=== PATIENT | female | born 1990 | race Caucasian/White ===

== ENCOUNTER 2020-02-07 20:43 | Emergency (ER) | payer OTHER ==
--- NOTE | 2020-02-07 22:09 | ED Physician Documentation ---
PD HPI CHEST PAIN - Stated complaint Stated Complaint: CP - Chief complaint Chief Complaint: Cardiac - History obtained from History obtained from: Patient - History of Present Illness Timing - onset: How many hours ago (2) Timing - onset during: Rest Timing - details: Abrupt onset Pain level max: 8 Pain level now: 2 Quality: Pain Location: Left chest Radiation: Other (no radiation) Associated symptoms: Feeling faint / dizzy, General Weakness. No: Shortness of air, Diaphoresis, Nausea, Vomiting, Palpitations, Cough Similar symptoms before: Has not had sx before Recently seen: Not recently seen - Additional information Additional information: c/o sudden onset left chest pain approximately 2 hours ago while at rest at home, associated with generalized weakness and "felt like I was going to pass out" (per patient). Denies h/o similar symptoms. Denies dyspnea Review of Systems Constitutional: reports: Reviewed and negative Cardiac: reports: Chest pain / pressure. denies: Palpitations, Pedal edema, Calf pain Respiratory: reports: Reviewed and negative GI: reports: Reviewed and negative Neurologic: reports: Generalized weakness (resolved). denies: Focal weakness, Numbness PD PAST MEDICAL HISTORY - Past Medical History Past Medical History: No - Past Surgical History Past Surgical History: Yes General: Appendectomy - Present Medications Home Medications: Ambulatory Orders Medication Instructions Recorded Confirmed Pantoprazole [Protonix] 40 mg PO DAILY 02/07/20 02/07/20 - Allergies Allergies/Adverse Reactions: Allergies Allergy/AdvReac Type Severity Reaction Status Date / Time Penicillins Allergy Unknown Verified 02/07/20 20:49 - Social History Does the pt smoke?: No Smoking Status: Never smoker Does the pt drink ETOH?: Yes Does the pt have substance abuse?: No - Immunizations Immunizations are current?: Yes - POLST Patient has POLST: No PD ED PE NORMAL - Vitals Vital signs reviewed: Yes - General General: Alert and oriented X 3, No acute distress, Well developed/nourished - Cardiac Cardiac: RRR, No murmur, No gallop, No rub - Respiratory Respiratory: No respiratory distress, Clear bilaterally - Abdomen Abdomen: Soft, Non tender - Extremities Extremities: No edema Results - Vitals Vitals: Vital Signs - 24 hr 02/07/20 02/07/20 02/07/20 20:46 20:54 22:54 Temperature 36.3 C L Heart Rate 73 56 L 57 L Respiratory 18 18 18 Rate Blood Pressure 125/77 116/74 102/75 O2 Saturation 99 99 97 02/08/20 02/08/20 00:00 00:21 Temperature Heart Rate 52 L 86 Respiratory 16 16 Rate Blood Pressure 123/92 H 105/77 O2 Saturation 99 100 Oxygen O2 Source Room air - EKG (time done) No standard instances Rate: Rate (enter#) (63) Rhythm: NSR [place]: Normal Intervals: Normal [place] QRS: Normal Ischemia: Normal ST segments - Labs Labs: Laboratory Tests 02/07/20 02/07/20 02/07/20 22:05 22:05 22:05 WBC 5.7 RBC 4.52 Hgb 11.4 L Hct 36.2 L MCV 80.1 L MCH 25.2 L MCHC 31.5 L RDW 16.0 H Plt Count 235 MPV 11.8 H Neut # (Auto) 2.8 Lymph # (Auto) 2.2 [place] # (Auto) 0.6 Eos # (Auto) 0.1 Baso # (Auto) 0.0 Absolute Nucleated RBC 0.00 Nucleated RBC % 0.0 D-Dimer 226.4 Sodium 140 Potassium 3.1 L Chloride 102 Carbon Dioxide 28 Anion Gap 10.0 BUN 13 Creatinine 0.7 Estimated GFR (MDRD) 100 Glucose 101 H Calcium 9.6 Total Bilirubin 1.0 AST 35 ALT 62 H Alkaline Phosphatase 100 Total Protein 7.1 Albumin 4.4 Globulin 2.7 Albumin/Globulin Ratio 1.6 Lipase 30 HCG, Quant 02/07/20 22:05 WBC RBC Hgb Hct MCV MCH MCHC RDW Plt Count MPV Neut # (Auto) Lymph # (Auto) [place] # (Auto) Eos # (Auto) Baso # (Auto) Absolute Nucleated RBC Nucleated RBC % D-Dimer Sodium Potassium Chloride Carbon Dioxide Anion Gap BUN Creatinine Estimated GFR (MDRD) Glucose Calcium Total Bilirubin AST ALT Alkaline Phosphatase Total Protein Albumin Globulin Albumin/Globulin Ratio Lipase HCG, Quant < 0.60 - Rads (name of study) chest xray Radiology: Prelim report reviewed, See rad report PD MEDICAL DECISION MAKING - ED course Complexity details: reviewed results, re-evaluated patient, considered differential, d/w patient Departure - Departure Disposition: 01 Home, Self Care Clinical Impression: Hypokalemia Chest pain Qualifiers: Chest pain type: unspecified Qualified Code(s): R07.9 - Chest pain, unspecified Condition: Good Instructions: ED Chest Pain Atypical Unkn Cause, ED Potassium Deficiency Comments: Follow up with your primary care provider. You might need to have your potassium level rechecked, and further testing might be needed for your symptoms. Return to the emergency department if you feel your symptoms are worsening in any way. Discharge Date/Time: 02/08/20 00:21
[2020-02-07 22:10] LABS: BASOPHILS % (AUTO) 0.4 %; EOSINOPHILS # (AUTO) 0.1 10^3/uL (0.0-0.7); EOSINOPHILS % (AUTO) 1.2 %; HGB - HEMOGLOBIN 11.4 g/dL (12.0-16.0); LYMPHOCYTES # (AUTO) 2.2 10^3/uL (1.5-3.5); LYMPHOCYTES % (AUTO) 38.4 %; MEAN CORPUSCULAR HEMOGLOBIN 25.2 pg (27.0-31.0); MEAN CORPUSCULAR HGB CONC 31.5 g/dL (32.0-36.0); MEAN CORPUSCULAR VOLUME 80.1 fL (81.0-99.0); MEAN PLATELET VOLUME 11.8 fL (7.9-10.8); MONOCYTES # (AUTO) 0.6 10^3/uL (0.0-1.0); MONOCYTES % (AUTO) 10.9 %; NEUTROPHILS # (AUTO) 2.8 10^3/uL (1.5-6.6); NEUTROPHILS % (AUTO) 48.9 %; PLT - PLATELET COUNT 235 10^3/uL (130-450); RED BLOOD COUNT 4.52 10^6/uL (4.20-5.40); WHITE BLOOD COUNT 5.7 x10^3/uL (4.8-10.8)
[2020-02-07 22:21] LABS: ALBUMIN 4.4 g/dL (3.2-5.5); ALBUMIN/GLOBULIN RATIO 1.6 (1.0-2.2); CALCIUM 9.6 mg/dL (8.5-10.3); CREATININE 0.7 mg/dL (0.4-1.0); TOTAL PROTEIN 7.1 g/dL (6.7-8.2)
[2020-02-08] MEDS ORDERED: POTASSIUM CHLORIDE 20 MEQ TABLET PO STA (00:12)
[2020-02-08 00:21] VITALS: BP 105/77
--- NOTE | 2020-02-08 08:05 | XRAY Report ---
PROCEDURE: Chest 2 View X-Ray INDICATIONS: chest pain TECHNIQUE: 2 view(s) of the chest. COMPARISON: None. FINDINGS: Surgical changes and devices: None. Lungs and pleura: No pleural effusions or pneumothorax. Lungs are clear. Mediastinum: Mediastinal contours are normal. Heart size is mildly prominent. Bones and chest wall: No suspicious bony abnormalities. Soft tissues appear unremarkable. IMPRESSION: No acute pulmonary process. The above findings are concordant with preliminary report. Reviewed by: Darlin Higginbotham MD on 02/08/2020 8:04 AM PDT Approved by: Darlin Higginbotham MD on 02/08/2020 8:04 AM PDT Station ID: [id number]
== END 2020-02-08 00:21 | disposition home or self-care (01) ==
LOC: ED 20:43
DX: R07.9 Chest pain, unspecified (principal); E87.6 Hypokalemia; R53.1 Weakness
CPT/HCPCS: 36415; 71046; 80053; 83690; 84702; 85025; 85379; 93005; 99284; A9270

== ENCOUNTER 2020-07-13 16:36 | Emergency (ER) | payer OTHER ==
--- NOTE | 2020-07-13 17:28 | ED Physician Documentation ---
PD HPI CHEST PAIN - Stated complaint Stated Complaint: CHEST PAIN, L ARM NUMB - Chief complaint Chief Complaint: Cardiac - History obtained from History obtained from: Patient - History of Present Illness Timing - details: Waxing and waning Pain level max: 5 Pain level now: 2 Quality: Other (Burning) Worsened by: Movement, Palpation Associated symptoms: No: Shortness of air, Diaphoresis, Nausea, Vomiting, Feeling faint / dizzy, General Weakness, Palpitations, Cough - Additional information Additional information: Patient is a 30-year-old female who presents to the emergency department left- sided chest pain. She states this been ongoing for about a month. She describes it as a burning sensation in her left upper chest. Occasionally she has numbness in her left arm, sometimes in the fingers, sometimes in the upper arm. Lasts for a few minutes at a time. Worse with movement, better with rest. Review of Systems Ten Systems: 10 systems reviewed and negative Constitutional: denies: Fever, Chills Ears: denies: Ear pain Nose: denies: Rhinorrhea / runny nose, Congestion GI: denies: Nausea, Vomiting, Diarrhea Skin: denies: Rash Musculoskeletal: denies: Neck pain, Back pain, Extremity swelling Neurologic: denies: Focal weakness, Confused, Altered mental status PD PAST MEDICAL HISTORY - Past Medical History Past Medical History: Yes GI: GERD - Past Surgical History Past Surgical History: Yes General: Appendectomy - Present Medications Home Medications: Ambulatory Orders Medication Instructions Recorded Confirmed Pantoprazole [Protonix] 40 mg PO DAILY 02/07/20 07/13/20 - Allergies Allergies/Adverse Reactions: Allergies Allergy/AdvReac Type Severity Reaction Status Date / Time Penicillins Allergy Unknown Verified 07/13/20 17:25 - Living Situation Living Arrangement: reports: At home - Social History Does the pt smoke?: No Smoking Status: Never smoker Does the pt drink ETOH?: Yes Does the pt have substance abuse?: No - Immunizations Immunizations are current?: Yes - POLST Patient has POLST: No PD ED PE NORMAL - Vitals Vital signs reviewed: Yes - General General: Alert and oriented X 3, No acute distress, Well developed/nourished - HEENT HEENT: PERRL, Moist mucous membranes - Neck Neck: Supple, no meningeal sign, No bony TTP, No JVD, No bruit - Cardiac Cardiac: RRR, Strong equal pulses - Respiratory Respiratory: No respiratory distress, Clear bilaterally - Abdomen Abdomen: Soft, Non tender, Non distended - Back Back: No CVA TTP - Derm Derm: Warm and dry - Extremities Extremities: No edema - Neuro Neuro: Alert and oriented X 3, printed circuit board reworker 2-12 intact, No motor deficit, No sensory deficit, Normal speech - Psych Psych: Normal mood, Normal affect - Free text exam Free text exam: Tender to palpation over the anterior chest wall, left upper chest. Reproduces her pain. No pain with range of motion of the left shoulder. Normal pulses. No swelling in the left arm. Results - Vitals Vitals: Vital Signs - 24 hr 07/13/20 07/13/20 07/13/20 16:44 17:15 17:39 Temperature 37.0 C Heart Rate 76 57 L Respiratory 18 18 Rate Blood Pressure 127/94 H 106/70 109/73 O2 Saturation 99 98 99 07/13/20 07/13/20 18:00 18:30 Temperature Heart Rate 61 61 Respiratory 15 15 Rate Blood Pressure 117/85 H 111/81 H O2 Saturation 100 100 Oxygen O2 Source Room air - EKG (time done) 1647 Rate: Rate (enter#) (58) Rhythm: NSR [place]: Normal Intervals: Normal [place] QRS: Normal Ischemia: Normal ST segments Computer interpretation: Agree with computer - Labs Labs: Laboratory Tests 07/13/20 07/13/20 07/13/20 17:43 17:43 17:43 WBC 6.7 RBC 4.66 Hgb 12.6 Hct 39.5 MCV 84.8 MCH 27.0 MCHC 31.9 L RDW 16.6 H Plt Count 238 MPV 11.6 H Neut # (Auto) 4.0 Lymph # (Auto) 2.2 [place] # (Auto) 0.4 Eos # (Auto) 0.1 Baso # (Auto) 0.0 Absolute Nucleated RBC 0.00 Nucleated RBC % 0.0 D-Dimer 231.7 Sodium 139 Potassium 3.7 Chloride 99 L Carbon Dioxide 28 Anion Gap 12.0 BUN 12 Creatinine 0.8 Estimated GFR (MDRD) 85 L Glucose 89 Calcium 9.6 Total Bilirubin 1.5 H AST 52 H ALT 83 H Alkaline Phosphatase 96 Troponin I High Sens Total Protein 8.2 Albumin 4.5 Globulin 3.7 Albumin/Globulin Ratio 1.2 Lipase 32 07/13/20 17:43 WBC RBC Hgb Hct MCV MCH MCHC RDW Plt Count MPV Neut # (Auto) Lymph # (Auto) [place] # (Auto) Eos # (Auto) Baso # (Auto) Absolute Nucleated RBC Nucleated RBC % D-Dimer Sodium Potassium Chloride Carbon Dioxide Anion Gap BUN Creatinine Estimated GFR (MDRD) Glucose Calcium Total Bilirubin AST ALT Alkaline Phosphatase Troponin I High Sens < 2.3 L Total Protein Albumin Globulin Albumin/Globulin Ratio Lipase - Rads (name of study) Chest x-ray Radiology: Prelim report reviewed, EMP read contemporaneously, See rad report (No acute cardiopulmonary abnormality. ) PD MEDICAL DECISION MAKING - ED course Complexity details: reviewed results, re-evaluated patient, considered differential (No ST elevation [place], no aortic dissection, no PE, no tension pneumothorax, no aortic aneurysm), d/w patient ED course: 30-year-old female with atypical chest pain. Unclear etiology. Appears to be musculoskeletal. The intermittent numbness to the left arm is unexplained, normal neurological exam here. No evidence of DVT. We will have her follow-up closely with her doctor for further care. Patient counseled regarding signs and symptoms for which I believe and urgent re-evaluation would be necessary. Patient with good understanding of and agreement to plan and is comfortable going home at this time This document was made in part using voice recognition software. While efforts are made to proofread this document, sound alike and grammatical errors may occur. Departure - Departure Disposition: 01 Home, Self Care Clinical Impression: Chest pain Qualifiers: Chest pain type: unspecified Qualified Code(s): R07.9 - Chest pain, unspecified Condition: Good Instructions: ED Chest Pain Atypical Unkn Cause Follow-Up: Teri Duffy PA [Primary Care Provider] - Comments: Follow-up with your doctor for further care. Return if you worsen. The cause of your symptoms is unclear. Your heart tests are normal. Your x-ray is normal. There is no evidence of blood clot in your lungs. No evidence of collapsed lungs. You can use Motrin or Tylenol as needed for pain. Discharge Date/Time: 07/13/20 19:01
[2020-07-13 18:06] LABS: BASOPHILS % (AUTO) 0.3 %; EOSINOPHILS # (AUTO) 0.1 10^3/uL (0.0-0.7); EOSINOPHILS % (AUTO) 1.3 %; HGB - HEMOGLOBIN 12.6 g/dL (12.0-16.0); LYMPHOCYTES # (AUTO) 2.2 10^3/uL (1.5-3.5); LYMPHOCYTES % (AUTO) 32.7 %; MEAN CORPUSCULAR HGB CONC 31.9 g/dL (32.0-36.0); MEAN CORPUSCULAR VOLUME 84.8 fL (81.0-99.0); MEAN PLATELET VOLUME 11.6 fL (7.9-10.8); MONOCYTES # (AUTO) 0.4 10^3/uL (0.0-1.0); MONOCYTES % (AUTO) 6.3 %; PLT - PLATELET COUNT 238 10^3/uL (130-450); RED BLOOD COUNT 4.66 10^6/uL (4.20-5.40); RED CELL DISTRIBUTION WIDTH 16.6 % (12.0-15.0); WHITE BLOOD COUNT 6.7 x10^3/uL (4.8-10.8)
--- NOTE | 2020-07-13 18:18 | XRAY Report ---
PROCEDURE: Chest 1 View X-Ray INDICATIONS: Chest Pain TECHNIQUE: One view of the chest was acquired. COMPARISON: CXR 02/07/2020. FINDINGS: Surgical changes and devices: Circular metallic object projecting over the neck which wasn't present on the prior exam. This could be jewelry. Lungs and pleura: No pleural effusions or pneumothorax. Lungs are clear. Mediastinum: Mediastinal contours appear normal. Heart size is prominent but unchanged. Bones and chest wall: No suspicious bony lesions. Overlying soft tissues appear unremarkable. IMPRESSION: No acute cardiopulmonary abnormality. Reviewed by: Kwabena Rizzo MD on 07/13/2020 5:16 PM [facility] Approved by: Kwabena Rizzo MD on 07/13/2020 5:16 PM [facility] Station ID: [id number]
[2020-07-13 18:20] LABS: ALBUMIN 4.5 g/dL (3.2-5.5); ALBUMIN/GLOBULIN RATIO 1.2 (1.0-2.2); BILIRUBIN,TOTAL 1.5 mg/dL (0.2-1.0); CALCIUM 9.6 mg/dL (8.5-10.3); CREATININE 0.8 mg/dL (0.4-1.0); TOTAL PROTEIN 8.2 g/dL (6.7-8.2)
[2020-07-13 19:10] VITALS: BP 111/81
== END 2020-07-13 19:01 | disposition home or self-care (01) ==
LOC: ED 16:36
DX: R07.89 Other chest pain (principal)
CPT/HCPCS: 36415; 80053; 83690; 84484; 85025; 85379; 93005; 99284

== ENCOUNTER 2020-12-06 21:01 | Emergency (ER) | payer OTHER ==
[2020-12-06 21:29] LABS: BASOPHILS % (AUTO) 0.7 %; EOSINOPHILS # (AUTO) 0.3 10^3/uL (0.0-0.7); HCT - HEMATOCRIT 40.4 % (37.0-47.0); HGB - HEMOGLOBIN 13.1 g/dL (12.0-16.0); LYMPHOCYTES % (AUTO) 33.5 %; MEAN CORPUSCULAR HEMOGLOBIN 27.2 pg (27.0-31.0); MEAN CORPUSCULAR HGB CONC 32.4 g/dL (32.0-36.0); MEAN CORPUSCULAR VOLUME 83.8 fL (81.0-99.0); MEAN PLATELET VOLUME 11.1 fL (7.9-10.8); MONOCYTES # (AUTO) 0.4 10^3/uL (0.0-1.0); MONOCYTES % (AUTO) 7.4 %; NEUTROPHILS # (AUTO) 3.2 10^3/uL (1.5-6.6); NEUTROPHILS % (AUTO) 53.1 %; PLT - PLATELET COUNT 248 10^3/uL (130-450); RED BLOOD COUNT 4.82 10^6/uL (4.20-5.40); RED CELL DISTRIBUTION WIDTH 14.7 % (12.0-15.0)
[2020-12-06 21:29] LABS: BILIRUBIN,URINE NEGATIVE (NEGATIVE); GLUCOSE, URINE (UA) NEGATIVE (NEGATIVE); KETONES,URINE (UA) NEGATIVE (NEGATIVE); LEUKOCYTE ESTERASE, URINE NEGATIVE (NEGATIVE); NITRITE,URINE NEGATIVE (NEGATIVE); OCCULT BLOOD,URINE NEGATIVE (NEGATIVE); PH,URINE 5.5 PH (5.0-7.5); PROTEIN,URINE NEGATIVE (NEGATIVE); UROBILINOGEN,URINE 0.2 (NORMAL) E.U./dL (NORMAL)
[2020-12-06 21:32] LABS: CLARITY,URINE CLEAR (CLEAR); HCG UR QUAL NEGATIVE
[2020-12-06 21:42] LABS: ALBUMIN 4.2 g/dL (3.2-5.5); ALBUMIN/GLOBULIN RATIO 1.2 (1.0-2.2); CREATININE 0.7 mg/dL (0.4-1.0); POTASSIUM 3.7 mmol/L (3.5-5.0); TOTAL PROTEIN 7.8 g/dL (6.7-8.2)
--- NOTE | 2020-12-06 21:59 | ED Physician Documentation ---
PD HPI ABD PAIN - Stated complaint Stated Complaint: LT SIDE ABD PX - Chief complaint Chief Complaint: Abd Pain - History obtained from History obtained from: Patient - History of Present Illness Timing - details: Gradual onset, Still present Quality: Aching, Sharp, Fullness/distended, Pain Location: LUQ Radiation: No: Chest, , Lower back Improved by: Other (nothing) Worsened by: Palpation Associated symptoms: Nausea. No: Vomiting, Diarrhea Similar symptoms before: No diagnosis Recently seen: Not recently seen Review of Systems Constitutional: denies: Fever Eyes: denies: Decreased vision, Photophobia Ears: denies: Ear pain Nose: denies: Congestion Throat: denies: Sore throat Cardiac: denies: Chest pain / pressure, Palpitations Respiratory: denies: Dyspnea, Cough GI: reports: Abdominal Pain, Nausea, Vomiting : denies: Dysuria, Frequency PD PAST MEDICAL HISTORY - Past Medical History GI: GERD - Past Surgical History Past Surgical History: Yes General: Appendectomy - Present Medications Home Medications: Ambulatory Orders Medication Instructions Recorded Confirmed Levothyroxine Sodium 50 mcg PO DAILY 12/06/20 12/06/20 [Levothyroxine] Sucralfate [Carafate] 1 gm PO ACHS #60 tablet 12/06/20 - Allergies Allergies/Adverse Reactions: Allergies Allergy/AdvReac Type Severity Reaction Status Date / Time Penicillins Allergy Unknown Verified 12/06/20 21:04 - Social History Does the pt smoke?: No Smoking Status: Never smoker Does the pt drink ETOH?: Yes Does the pt have substance abuse?: No - Immunizations Immunizations are current?: Yes - POLST Patient has POLST: No PD ED PE NORMAL - Vitals Vital signs reviewed: Yes (normal ) - General General: Alert and oriented X 3, No acute distress, Well developed/nourished - HEENT HEENT: Atraumatic, PERRL, EOMI - Neck Neck: Supple, no meningeal sign, No bony TTP - Cardiac Cardiac: RRR, No murmur - Respiratory Respiratory: No respiratory distress, Clear bilaterally - Abdomen Abdomen: Normal bowel sounds, Soft, Non distended, No organomegaly, Other (tender to the left upper quadrant without garding ) - Back Back: No CVA TTP, No spinal TTP - Derm Derm: Normal color, Warm and dry, No rash - Extremities Extremities: No deformity, No edema - Neuro Neuro: Alert and oriented X 3, metal weather stripper 2-12 intact, No motor deficit, No sensory deficit, Normal speech Eye Opening: Spontaneous Motor: Obeys Commands Verbal: Oriented GCS Score: 15 - Psych Psych: Normal mood, Normal affect Results - Vitals Vitals: Vital Signs - 24 hr 12/06/20 12/06/20 21:04 23:00 Temperature 36.5 C 36.7 C Heart Rate 68 70 Respiratory 16 18 Rate Blood Pressure 125/78 122/80 O2 Saturation 100 97 Oxygen O2 Source Room air - Labs Labs: Laboratory Tests 12/06/20 12/06/20 12/06/20 21:15 21:15 21:24 WBC 6.0 RBC 4.82 Hgb 13.1 Hct 40.4 MCV 83.8 MCH 27.2 MCHC 32.4 RDW 14.7 Plt Count 248 MPV 11.1 H Neut # (Auto) 3.2 Lymph # (Auto) 2.0 [place] # (Auto) 0.4 Eos # (Auto) 0.3 Baso # (Auto) 0.0 Absolute Nucleated RBC 0.00 Nucleated RBC % 0.0 Sodium Potassium Chloride Carbon Dioxide Anion Gap BUN Creatinine Estimated GFR (MDRD) Glucose Calcium Total Bilirubin AST ALT Alkaline Phosphatase Total Protein Albumin Globulin Albumin/Globulin Ratio Lipase Urine Color YELLOW Urine Clarity CLEAR Urine pH 5.5 Ur Specific [place] 1.025 Urine Protein NEGATIVE Urine Glucose (UA) NEGATIVE Urine Ketones NEGATIVE Urine Occult Blood NEGATIVE Urine Nitrite NEGATIVE Urine Bilirubin NEGATIVE Urine Urobilinogen 0.2 (NORMAL) Ur Leukocyte Esterase NEGATIVE Ur Microscopic Review NOT INDICATED Urine Culture Comments NOT INDICATED Urine HCG, Qual NEGATIVE 12/06/20 21:24 WBC RBC Hgb Hct MCV MCH MCHC RDW Plt Count MPV Neut # (Auto) Lymph # (Auto) [place] # (Auto) Eos # (Auto) Baso # (Auto) Absolute Nucleated RBC Nucleated RBC % Sodium 140 Potassium 3.7 Chloride 103 Carbon Dioxide 28 Anion Gap 9.0 BUN 12 Creatinine 0.7 Estimated GFR (MDRD) 99 Glucose 101 H Calcium 9.0 Total Bilirubin 1.0 AST 48 H ALT 73 H Alkaline Phosphatase 95 Total Protein 7.8 Albumin 4.2 Globulin 3.6 Albumin/Globulin Ratio 1.2 Lipase 28 Urine Color Urine Clarity Urine pH Ur Specific [place] Urine Protein Urine Glucose (UA) Urine Ketones Urine Occult Blood Urine Nitrite Urine Bilirubin Urine Urobilinogen Ur Leukocyte Esterase Ur Microscopic Review Urine Culture Comments Urine HCG, Qual Procedures - Bedside sono Bedside sono by EMP: With use bedside ultrasound the left kidney is imaged and it is sonographically nontender there is no evidence of hydronephrosis. PD MEDICAL DECISION MAKING - ED course Complexity details: reviewed results, re-evaluated patient, considered differential, d/w patient ED course: 30-year-old female with a history of GERD and gallbladder disease a status post cholecystectomy she has developed some pain in the left upper quadrant and she has a mildly tender in the left flank a negative urinalysis she does not have hydronephrosis on bedside ultrasound examination and she improves with the use of viscous lidocaine and Mylanta. She is diagnosed with gastritis or ulcer and is prescribed Carafate and I have recommended she take Pepcid AC or Nexium on a regular basis. Here in the emerge department she is given a dose of Protonix intravenously. Departure - Departure Disposition: Home, Self Care Clinical Impression: Gastritis Qualifiers: Gastritis type: unspecified gastritis Chronicity: acute Gastritis bleeding: without bleeding Qualified Code(s): K29.00 - Acute gastritis without bleeding Condition: Stable Instructions: ED PUD Vs Gastritis Follow-Up: [facility] [Provider Group] Prescriptions: Sucralfate [Carafate] 1 gm PO ACHS #60 tablet Comments: [place] today it looks like your pain in your left side is related to your stomach and an irritation to the lining. The recommendation is to take a medication to reduce the acid in your stomach to allow this to heal up. Take something like Pepcid AC or Nexium on a regular basis for at least 2 weeks. In addition I have prescribed some Carafate for you which will aid in the healing. Discharge Date/Time: 12/06/20 23:20
[2020-12-06] MEDS ORDERED: LIDOCAINE VISCOUS 2% 15 ML UDC MM STA (22:08)
[2020-12-06] MEDS ORDERED: MAG HYDROX/AL HYDROX/SIMETH 30 ML UDC PO STA (22:08)
[2020-12-06] MEDS ORDERED: PANTOPRAZOLE 40 MG VIAL IVP STA (22:42)
[2020-12-06] MEDS ORDERED: SUCRALFATE 1 GM/10 ML UDC PO STA (22:42)
[2020-12-06 23:41] VITALS: BP 122/80
== END 2020-12-06 23:20 | disposition home or self-care (01) ==
LOC: ED 21:01
DX: K29.00 Acute gastritis without bleeding (principal)
CPT/HCPCS: 36415; 80053; 81003; 81025; 83690; 85025; 96374; 99283; 99284; A9270; 81001; 87086

== ENCOUNTER 2020-12-25 16:03 | Outpatient (CLI) | payer OTHER ==
[2020-12-25 17:57] LABS: BASOPHILS % (AUTO) 0.3 %; EOSINOPHILS # (AUTO) 0.2 10^3/uL (0.0-0.7); EOSINOPHILS % (AUTO) 3.1 %; HCT - HEMATOCRIT 39.5 % (37.0-47.0); HGB - HEMOGLOBIN 12.6 g/dL (12.0-16.0); LYMPHOCYTES # (AUTO) 1.7 10^3/uL (1.5-3.5); MEAN CORPUSCULAR HEMOGLOBIN 27.4 pg (27.0-31.0); MEAN CORPUSCULAR HGB CONC 31.9 g/dL (32.0-36.0); MEAN CORPUSCULAR VOLUME 85.9 fL (81.0-99.0); MEAN PLATELET VOLUME 12.4 fL (7.9-10.8); MONOCYTES # (AUTO) 0.4 10^3/uL (0.0-1.0); MONOCYTES % (AUTO) 6.3 %; NEUTROPHILS # (AUTO) 3.9 10^3/uL (1.5-6.6); NEUTROPHILS % (AUTO) 62.8 %; PLT - PLATELET COUNT 239 10^3/uL (130-450); RED CELL DISTRIBUTION WIDTH 16.2 % (12.0-15.0); WHITE BLOOD COUNT 6.2 x10^3/uL (4.8-10.8)
[2020-12-25 18:22] LABS: HCG,QUALITATIVE BLOOD POSITIVE
[2020-12-25 18:30] LABS: THYROID STIMULATING HORMONE 12.04 uIU/mL (0.34-5.60)
[2020-12-25 18:32] LABS: ALBUMIN 4.1 g/dL (3.2-5.5); ALBUMIN/GLOBULIN RATIO 1.1 (1.0-2.2); BILIRUBIN,TOTAL 1.2 mg/dL (0.2-1.0); CALCIUM 9.2 mg/dL (8.5-10.3); CREATININE 0.6 mg/dL (0.4-1.0); POTASSIUM 3.5 mmol/L (3.5-5.0); TOTAL PROTEIN 7.7 g/dL (6.7-8.2)
[2020-12-25 18:36] LABS: FERRITIN 32.7 ng/mL (11.0-306.8)
[2020-12-25 19:21] LABS: FREE T4 (FREE THYROXINE) 0.66 ng/dL (0.58-1.64)
== END 2020-12-25 16:04 | disposition home or self-care (01) ==
LOC: LAB.N 16:03
PROVIDERS: ATTEND Family Medicine
DX: E03.9 Hypothyroidism, unspecified (principal); R53.83 Other fatigue
CPT/HCPCS: 36415; 80053; 82728; 83540; 84439; 84443; 84466; 84703; 85025

== ENCOUNTER 2021-01-09 16:20 | Outpatient (CLI) | payer OTHER ==
[2021-01-09 17:26] LABS: BASOPHILS % (AUTO) 0.5 %; EOSINOPHILS # (AUTO) 0.2 10^3/uL (0.0-0.7); EOSINOPHILS % (AUTO) 2.8 %; HCT - HEMATOCRIT 38.7 % (37.0-47.0); HGB - HEMOGLOBIN 12.4 g/dL (12.0-16.0); LYMPHOCYTES % (AUTO) 30.9 %; MEAN CORPUSCULAR HEMOGLOBIN 27.6 pg (27.0-31.0); MEAN CORPUSCULAR VOLUME 86.2 fL (81.0-99.0); MEAN PLATELET VOLUME 11.3 fL (7.9-10.8); MONOCYTES # (AUTO) 0.6 10^3/uL (0.0-1.0); MONOCYTES % (AUTO) 9.8 %; NEUTROPHILS # (AUTO) 3.6 10^3/uL (1.5-6.6); NEUTROPHILS % (AUTO) 55.5 %; PLT - PLATELET COUNT 231 10^3/uL (130-450); RED BLOOD COUNT 4.49 10^6/uL (4.20-5.40); WHITE BLOOD COUNT 6.4 x10^3/uL (4.8-10.8)
--- NOTE | 2021-01-10 07:22 | Ultrasound Report ---
PROCEDURE: OB First Trimester w/TV INDICATIONS: POSITIVE TEST OUTSIDE/PRIOR DATING DATA: Last menstrual period (LMP): Not available. LMP-based estimated date of delivery (ARNOL): Not available. First dating scan (date and location): 01/09/2021, this study. Estimated date of delivery (ARNOL) from first dating scan: 09/03/2021. TECHNIQUE: Real-time scanning was performed of the fetus and maternal pelvic organs, with image documentation. Endovaginal scanning was also performed to better visualize the fetus and maternal ovaries. COMPARISON: None FINDINGS: [place]-rump length 0.4 cm correlates with a gestational age of 6 weeks 1 day +/- 5 days. Fe kristen cardiac activity is observed. Embryo: Viable intrauterine gestation at this time. Measurement variability in dating: +/- 4 weeks by LMP, +/- 7 days by mean sac diameter (use before 6 weeks gestation if crown-rump length not able to be measured), +/- 5 days by crown-rump length (6-12 weeks gestation). Maternal organs: Ovaries normal considering gestational status. IMPRESSION: Early first trimester gestation, 6 weeks 1 day gestational age with delivery date projected to be krystle tered on 09/03/2021. cardiac activity observed. Follow-up anatomic survey at 20 weeks gesta tion is recommended. Reviewed by: Jameel Erwin MD on 01/10/2021 7:20 AM PDT Approved by: Jameel Erwin MD on 01/10/2021 7:20 AM PDT Station ID: [id number]
[2021-01-10 12:56] LABS: HIV AG/AB 4TH GEN NON-REACTIVE (NON-REACTIVE)
[2021-01-10 12:57] LABS: HEPATITIS B SURFACE ANTIGEN NON-REACTIVE (NON-REACTIVE); HEPATITIS C ANTIBODY NON-REACTIVE (NON-REACTIVE)
== END 2021-01-09 16:21 | disposition home or self-care (01) ==
LOC: DI 16:20 → LAB 16:21
PROVIDERS: ATTEND Advanced Practice Midwife
DX: Z36.89 Encounter for other specified antenatal screening (principal); Z32.01 Encounter for pregnancy test, result positive
CPT/HCPCS: 36415; 85025; 86592; 86762; 86787; 86803; 86850; 86900; 86901; 87340; 87389

== ENCOUNTER 2021-01-28 16:52 | Outpatient (CLI) | payer OTHER ==
[2021-01-29 21:15] LABS: CHLAMYDIA TRACHOMATIS DNA NEGATIVE (NEGATIVE); NEISSERIA GONORRHOEAE DNA NEGATIVE (NEGATIVE); TRICHOMONAS VAGINALIS DNA NEGATIVE (NEGATIVE)
== END 2021-01-28 23:59 | disposition home or self-care (01) ==
LOC: LAB.WC 16:52
PROVIDERS: ATTEND Advanced Practice Midwife
DX: Z34.90 Encounter for supervision of normal pregnancy, unspecified, unspecified trimester (principal)
CPT/HCPCS: 87491; 87591; 87661

== ENCOUNTER 2021-01-28 17:09 | Outpatient (CLI) | payer OTHER ==
[2021-01-28 17:32] LABS: BASOPHILS % (AUTO) 0.4 %; EOSINOPHILS # (AUTO) 0.2 10^3/uL (0.0-0.7); EOSINOPHILS % (AUTO) 2.8 %; HCT - HEMATOCRIT 38.1 % (37.0-47.0); HGB - HEMOGLOBIN 12.8 g/dL (12.0-16.0); LYMPHOCYTES % (AUTO) 29.1 %; MEAN CORPUSCULAR HEMOGLOBIN 28.5 pg (27.0-31.0); MEAN CORPUSCULAR HGB CONC 33.6 g/dL (32.0-36.0); MEAN CORPUSCULAR VOLUME 84.9 fL (81.0-99.0); MEAN PLATELET VOLUME 11.3 fL (7.9-10.8); MONOCYTES # (AUTO) 0.5 10^3/uL (0.0-1.0); MONOCYTES % (AUTO) 7.3 %; PLT - PLATELET COUNT 241 10^3/uL (130-450); RED BLOOD COUNT 4.49 10^6/uL (4.20-5.40); RED CELL DISTRIBUTION WIDTH 14.7 % (12.0-15.0); WHITE BLOOD COUNT 6.7 x10^3/uL (4.8-10.8)
[2021-01-28 17:44] LABS: ALBUMIN 3.8 g/dL (3.2-5.5); ALBUMIN/GLOBULIN RATIO 1.1 (1.0-2.2); BILIRUBIN,TOTAL 0.4 mg/dL (0.2-1.0); CREATININE 0.6 mg/dL (0.4-1.0); POTASSIUM 3.4 mmol/L (3.5-5.0); TOTAL PROTEIN 7.3 g/dL (6.7-8.2)
[2021-01-28 17:58] LABS: T4 (THYROXINE) 7.93 ug/dL (6.09-12.23)
[2021-01-28 18:02] LABS: THYROID STIMULATING HORMONE 17.8 uIU/mL (0.34-5.60)
[2021-01-29 13:57] LABS: HEPATITIS B SURFACE ANTIGEN NON-REACTIVE (NON-REACTIVE); HEPATITIS C ANTIBODY NON-REACTIVE (NON-REACTIVE)
[2021-01-29 14:31] LABS: HIV AG/AB 4TH GEN NON-REACTIVE (NON-REACTIVE)
[2021-01-30 20:11] LABS: THYROID PEROXIDASE ANTIBODIES >900 IU/mL (<9)
== END 2021-01-28 17:10 | disposition home or self-care (01) ==
LOC: LAB 17:09
PROVIDERS: ATTEND Advanced Practice Midwife
DX: O99.280 Endocrine, nutritional and metabolic diseases complicating pregnancy, unspecified trimester (principal); E03.9 Hypothyroidism, unspecified; O99.891 Other specified diseases and conditions complicating pregnancy; R94.5 Abnormal results of liver function studies; Z36.89 Encounter for other specified antenatal screening; Z32.01 Encounter for pregnancy test, result positive
CPT/HCPCS: 36415; 80053; 84436; 84443; 84480; 85025; 86376; 86592; 86762; 86787; 86800; 86803; 86850; 86900; 86901; 87340; 87389; 87491; 87591; 87661

== ENCOUNTER 2021-02-07 08:21 | Outpatient (CLI) | payer OTHER ==
--- NOTE | 2021-02-07 09:36 | Ultrasound Report ---
PROCEDURE: Abdomen Limited INDICATIONS: ABN LIVER FUNCTION TESTS TECHNIQUE: Real-time focused scanning was performed of the abdomen, with image documentation. COMPARISON: Correlation is made with OB ultrasound, 01/09/2021 FINDINGS: The liver demonstrates mildly prominent size. The liver demonstrates moderately increased echogenicity, which limits ultrasound sensitivity for detection of masses. The gallbladder has been removed. No biliary ductal dilatation is seen. The common bile duct measures 5 mm. The visualized pancreas is within normal limits. An intrauterine gestation is seen, with a measured heart rate of 162 bpm. IMPRESSION: Increased liver echogenicity is seen. This is nonspecific, yet it is most commonly attributed to fatt y infiltration. Status post cholecystectomy, without biliary dilatation. Reviewed by: Merlin Coates MD on 02/07/2021 8:35 AM [facility] Approved by: Merlin Coates MD on 02/07/2021 8:35 AM [facility] Station ID: [id number]
== END 2021-02-07 08:22 | disposition home or self-care (01) ==
LOC: DI 08:21
PROVIDERS: ATTEND Advanced Practice Midwife
DX: R94.5 Abnormal results of liver function studies (principal); Z90.49 Acquired absence of other specified parts of digestive tract

== ENCOUNTER 2021-02-19 17:11 | Outpatient (CLI) | payer OTHER ==
[2021-02-19 17:50] LABS: T4 (THYROXINE) 11.49 ug/dL (6.09-12.23)
[2021-02-19 17:54] LABS: THYROID STIMULATING HORMONE 4.25 uIU/mL (0.34-5.60)
[2021-02-19 17:56] LABS: FREE T4 (FREE THYROXINE) 0.81 ng/dL (0.58-1.64)
== END 2021-02-19 17:12 | disposition home or self-care (01) ==
LOC: LAB 17:11
PROVIDERS: ATTEND Nurse Practitioner Obstetrics & Gynecology
DX: E03.9 Hypothyroidism, unspecified (principal)
CPT/HCPCS: 36415; 84436; 84439; 84443; 84480

== ENCOUNTER 2021-02-24 07:00 | Outpatient (CLI) | payer OTHER ==
[2021-02-25 13:05] LABS: MUDS CUTOFF CONCENTRATIONS CUTOFF CONC BELOW:
[2021-02-25 13:15] LABS: BILIRUBIN,URINE NEGATIVE (NEGATIVE); CLARITY,URINE CLOUDY (CLEAR); GLUCOSE, URINE (UA) NEGATIVE (NEGATIVE); KETONES,URINE (UA) NEGATIVE (NEGATIVE); LEUKOCYTE ESTERASE, URINE NEGATIVE (NEGATIVE); NITRITE,URINE NEGATIVE (NEGATIVE); OCCULT BLOOD,URINE NEGATIVE (NEGATIVE); PROTEIN,URINE NEGATIVE (NEGATIVE); UROBILINOGEN,URINE 0.2 (NORMAL) E.U./dL (NORMAL)
[2021-02-25 13:21] LABS: AMPHETAMINE SCREEN,URINE NEGATIVE (NEGATIVE); BARBITURATE SCREEN,UR NEGATIVE (NEGATIVE); BENZODIAZEPINES SCREEN, URINE NEGATIVE (NEGATIVE); COCAINE SCREEN URINE NEGATIVE (NEGATIVE); METHADONE SCREEN, URINE NEGATIVE (NEGATIVE); METHAMPHETAMINES SCREEN, URINE NEGATIVE (NEGATIVE); OPIATE SCREEN, URINE NEGATIVE (NEGATIVE); OXYCODONE SCREEN, URINE NEGATIVE (NEGATIVE); PROPOXYPHENE SCREEN, URINE NEGATIVE (NEGATIVE); THC CANNABINOID SCREEN, URINE NEGATIVE (NEGATIVE); TRICYCLIC ANTIDEPRESSANT,URINE NEGATIVE (NEGATIVE)
[2021-02-25 13:30] LABS: AMORPHOUS SEDIMENT,UR Marked /LPF; BACTERIA,URINE Rare /HPF (None Seen); RBC,URINE None Seen /HPF (0-5); SQUAMOUS EPITHELIAL CELL,UR FEW Squamous (<= Few); WBC,URINE 0-3 /HPF (0-5)
== END 2021-02-24 23:59 | disposition home or self-care (01) ==
LOC: LAB.R 07:00
PROVIDERS: ATTEND Advanced Practice Midwife
DX: Z34.90 Encounter for supervision of normal pregnancy, unspecified, unspecified trimester (principal)
CPT/HCPCS: 80306; 81001; 87086

== ENCOUNTER 2021-03-30 10:23 | Outpatient (CLI) | payer OTHER ==
[2021-03-30 10:55] LABS: ALBUMIN 3.3 g/dL (3.2-5.5); ALBUMIN/GLOBULIN RATIO 0.9 (1.0-2.2); BILIRUBIN,TOTAL 0.8 mg/dL (0.2-1.0); CALCIUM 8.8 mg/dL (8.5-10.3); CREATININE 0.6 mg/dL (0.4-1.0); POTASSIUM 3.7 mmol/L (3.5-5.0)
[2021-03-30 11:13] LABS: THYROID STIMULATING HORMONE 4.06 uIU/mL (0.34-5.60)
[2021-03-30 11:15] LABS: FREE T4 (FREE THYROXINE) 0.71 ng/dL (0.58-1.64)
== END 2021-03-30 10:24 | disposition home or self-care (01) ==
LOC: LAB 10:23
PROVIDERS: ATTEND Obstetrics & Gynecology
DX: O99.280 Endocrine, nutritional and metabolic diseases complicating pregnancy, unspecified trimester (principal); E03.9 Hypothyroidism, unspecified; O99.891 Other specified diseases and conditions complicating pregnancy; R94.5 Abnormal results of liver function studies
CPT/HCPCS: 36415; 80053; 84439; 84443

== ENCOUNTER 2021-04-13 18:16 | Outpatient (CLI) | payer OTHER ==
--- NOTE | 2021-04-14 11:48 | Ultrasound Report ---
PROCEDURE: OB Detailed Eval INDICATIONS: SUPERVISION OF OUTSIDE/PRIOR DATING DATA: Last menstrual period (LMP): Unknown. LMP-based estimated date of delivery (ARNOL): Unknown. First dating scan (date and location): 01/09/2021. Estimated date of delivery (ARNOL) from first dating scan: 09/03/21 The below data below was generated using the ultrasound ARNOL of 09/03/21 TECHNIQUE: Real-time scanning was performed of the fetus, with image documentation and biometric measurements. COMPARISON: OB ultrasound 01/09/2021 FINDINGS: General: A single living intrauterine gestation is present. Presentation: Very Placenta: Placental position is posterior, without previa. Amniotic fluid index: 17.8 cm, within normal limits for gestational age. Largest pocket 4.7 cm. heart rate: 143 beats per minute. Maternal cervical canal: 6.8 cm long; normal length is 2.5 cm or more. biometrics: Biparietal diameter: 4.9 cm 20 weeks 5 days Head circumference: 18.0 cm 20 weeks 3 days Abdominal circumference: 15.3 cm 20 weeks 3 days Femur length: 3.4 cm 20 weeks 3 days Estimated gestational age from initial scan: 19 weeks 4 days Composite gestational age from present scan: 20 weeks 2 days Estimated weight and percentile: 356 g 91st percentile Measurement variability in biometric dating: +/- 10 days from 12-20 weeks gestation, +/- 2 weeks from 20-30 weeks gestation, +/- 3 weeks at 30 weeks gestation or later. Anatomic survey: Neuro: Ventricles are normal at less than 10 mm. Cisterna magna is normal at 3-11 mm. Cerebellum i s normal in size and morphology. Nuchal skin fold: Normal at less than 6 mm between 14 and 20 weeks gestational age. Face: Nose and lips, facial profile are normal. Spine: No evidence for spina bifida. Heart: 4-chambered heart and ventricular outflow tracts are suboptimally evaluated. Diaphragm: Diaphragm is not well seen Stomach: Left-sided stomach is present. Kidneys: No hydronephrosis. Normal is less than 5 mm in 2nd trimester, less than 7 mm in 3rd trimester. Cord: 3 vessel cord has orthotopic insertion. Bladder: Normal in size. Extremities: All 4 extremities are visualized. IMPRESSION: 1. Single live intrauterine with ultrasound gestational age today of 20 weeks 2 days compar ed to 19 weeks 4 days from initial exam. 2. Suboptimal visualization of four-chamber heart/outflow tracts as well as diaphragm. Follow-up exam is recommended for further evaluation. Reviewed by: Darlin Higginbotham MD on 04/14/2021 11:47 AM PDT Approved by: Darlin Higginbotham MD on 04/14/2021 11:47 AM PDT Station ID: [id number]
== END 2021-04-13 18:17 | disposition home or self-care (01) ==
LOC: DI 18:16
PROVIDERS: ATTEND Obstetrics & Gynecology
DX: Z34.02 Encounter for supervision of normal first pregnancy, second trimester (principal); Z36.89 Encounter for other specified antenatal screening

== ENCOUNTER 2021-04-22 08:00 | Outpatient (CLI) | payer OTHER | END 2021-04-22 23:59 | disposition home or self-care (01) | LOC: LAB.N 08:00 | PROVIDERS: ATTEND Family Medicine | DX: R30.0 Dysuria (principal) | CPT/HCPCS: 87086 ==

== ENCOUNTER 2021-04-23 18:49 | Outpatient (CLI) | payer OTHER ==
--- NOTE | 2021-04-24 10:39 | Ultrasound Report ---
PROCEDURE: OB F/U or Repeat INDICATIONS: SUPERVISION OF NORMAL OUTSIDE/PRIOR DATING DATA: Last menstrual period (LMP): Unknown. LMP-based estimated date of delivery (ARNOL): Unknown. First dating scan (date and location): 01/09/2021. Estimated date of delivery (ARNOL) from first dating scan: 09/03/21. The below data below was generated using the ultrasound ARNOL of 09/03/21 TECHNIQUE: Real-time scanning was performed of the fetus, with image documentation and biometric measurements. COMPARISON: OB ultrasound 01/09/2021, 04/13/2021 FINDINGS: General: A single living intrauterine gestation is present. Presentation: Vertex Placenta: Placental position is posterior, without previa. Amniotic fluid index: 19.4 cm, within normal limits for gestational age. Largest pocket 5.4 cm heart rate: 135 beats per minute. Maternal cervical canal: 4 cm long; normal length is 2.5 cm or more. biometrics: Estimated gestational age from initial scan: 21 weeks 0 days Other: 4 chambered heart, outflow tracts as well as diaphragms are within normal limits. IMPRESSION: 1. Single live intrauterine . 2. Four-chamber heart, outflow tracts and diaphragms are within normal limits. Reviewed by: Darlin Higginbotham MD on 04/24/2021 10:37 AM PDT Approved by: Darlin Higginbotham MD on 04/24/2021 10:37 AM PDT Station ID: [id number]
== END 2021-04-23 18:50 | disposition home or self-care (01) ==
LOC: DI 18:49
PROVIDERS: ATTEND Obstetrics & Gynecology
DX: Z34.02 Encounter for supervision of normal first pregnancy, second trimester (principal)

== ENCOUNTER 2021-04-29 08:00 | Outpatient (CLI) | payer OTHER ==
[2021-04-29 20:39] LABS: BACTERIAL VAGINOSIS DNA NEGATIVE (NEGATIVE); CANDIDA GLABRATA DNA NEGATIVE (NEGATIVE); CANDIDA GROUP DNA POSITIVE (NEGATIVE); CANDIDA KRUSEI DNA NEGATIVE (NEGATIVE); TRICHOMONAS VAGINALIS DNA NEGATIVE (NEGATIVE)
== END 2021-04-29 23:59 | disposition home or self-care (01) ==
LOC: LAB.WC 08:00
PROVIDERS: ATTEND Obstetrics & Gynecology
DX: N89.8 Other specified noninflammatory disorders of vagina (principal)
CPT/HCPCS: 87661; 87801

== ENCOUNTER 2021-04-29 15:08 | Outpatient (CLI) | payer OTHER ==
[2021-04-29 15:39] LABS: ALBUMIN 3.3 g/dL (3.2-5.5); ALBUMIN/GLOBULIN RATIO 0.9 (1.0-2.2); BILIRUBIN,TOTAL 0.7 mg/dL (0.2-1.0); CALCIUM 8.8 mg/dL (8.5-10.3); CREATININE 0.5 mg/dL (0.4-1.0); POTASSIUM 3.5 mmol/L (3.5-5.0); TOTAL PROTEIN 7.1 g/dL (6.7-8.2)
[2021-04-29 15:56] LABS: THYROID STIMULATING HORMONE 3.11 uIU/mL (0.34-5.60)
== END 2021-04-29 15:09 | disposition home or self-care (01) ==
LOC: LAB 15:08
PROVIDERS: ATTEND Obstetrics & Gynecology
DX: O99.280 Endocrine, nutritional and metabolic diseases complicating pregnancy, unspecified trimester (principal); E03.9 Hypothyroidism, unspecified; O99.891 Other specified diseases and conditions complicating pregnancy; R94.5 Abnormal results of liver function studies; N89.8 Other specified noninflammatory disorders of vagina
CPT/HCPCS: 36415; 80053; 84443; 87661; 87801

== ENCOUNTER 2021-05-28 15:53 | Outpatient (CLI) | payer OTHER ==
[2021-05-28 21:39] LABS: BACTERIAL VAGINOSIS DNA NEGATIVE (NEGATIVE); CANDIDA GLABRATA DNA NEGATIVE (NEGATIVE); CANDIDA GROUP DNA POSITIVE (NEGATIVE); CANDIDA KRUSEI DNA NEGATIVE (NEGATIVE); TRICHOMONAS VAGINALIS DNA NEGATIVE (NEGATIVE)
== END 2021-05-28 23:59 | disposition home or self-care (01) ==
LOC: LAB.WC 15:53
PROVIDERS: ATTEND Obstetrics & Gynecology
DX: N89.8 Other specified noninflammatory disorders of vagina (principal)
CPT/HCPCS: 87661; 87801

== ENCOUNTER 2021-06-20 10:10 | Outpatient (CLI) | payer OTHER ==
[2021-06-20 11:25] LABS: BASOPHILS % (AUTO) 0.3 %; EOSINOPHILS # (AUTO) 0.1 10^3/uL (0.0-0.7); EOSINOPHILS % (AUTO) 1.5 %; HCT - HEMATOCRIT 35.1 % (37.0-47.0); HGB - HEMOGLOBIN 10.9 g/dL (12.0-16.0); LYMPHOCYTES # (AUTO) 1.2 10^3/uL (1.5-3.5); MEAN CORPUSCULAR HEMOGLOBIN 25.8 pg (27.0-31.0); MEAN CORPUSCULAR HGB CONC 31.1 g/dL (32.0-36.0); MEAN CORPUSCULAR VOLUME 83.2 fL (81.0-99.0); MONOCYTES # (AUTO) 0.3 10^3/uL (0.0-1.0); MONOCYTES % (AUTO) 5.2 %; NEUTROPHILS # (AUTO) 4.7 10^3/uL (1.5-6.6); NEUTROPHILS % (AUTO) 73.1 %; PLT - PLATELET COUNT 210 10^3/uL (130-450); RED BLOOD COUNT 4.22 10^6/uL (4.20-5.40); RED CELL DISTRIBUTION WIDTH 14.6 % (12.0-15.0); WHITE BLOOD COUNT 6.5 x10^3/uL (4.8-10.8)
[2021-06-20 11:44] LABS: ALBUMIN 3.1 g/dL (3.2-5.5); ALBUMIN/GLOBULIN RATIO 0.8 (1.0-2.2); CALCIUM 8.6 mg/dL (8.5-10.3); CREATININE 0.5 mg/dL (0.4-1.0); POTASSIUM 3.8 mmol/L (3.5-5.0); TOTAL PROTEIN 6.9 g/dL (6.7-8.2)
[2021-06-20 12:02] LABS: THYROID STIMULATING HORMONE 1.4 uIU/mL (0.34-5.60)
== END 2021-06-20 10:11 | disposition home or self-care (01) ==
LOC: LAB 10:10
PROVIDERS: ATTEND Obstetrics & Gynecology
DX: O99.891 Other specified diseases and conditions complicating pregnancy (principal); R94.5 Abnormal results of liver function studies; Z36.89 Encounter for other specified antenatal screening
CPT/HCPCS: 36415; 80053; 82950; 84443; 85025

== ENCOUNTER 2021-06-29 07:58 | Outpatient (CLI) | payer OTHER ==
[2021-06-29 08:35] LABS: GTT GLUCOSE,FASTING 91 mg/dL (70-100)
== END 2021-06-29 07:59 | disposition home or self-care (01) ==
LOC: LAB 07:58
PROVIDERS: ATTEND Obstetrics & Gynecology
DX: O99.810 Abnormal glucose complicating pregnancy (principal)
CPT/HCPCS: 36415; 82951; 82952

== ENCOUNTER 2021-08-03 08:00 | Outpatient (CLI) | payer OTHER ==
[2021-08-04 04:02] LABS: BACTERIAL VAGINOSIS DNA NEGATIVE (NEGATIVE); CANDIDA GLABRATA DNA NEGATIVE (NEGATIVE); CANDIDA GROUP DNA POSITIVE (NEGATIVE); CANDIDA KRUSEI DNA NEGATIVE (NEGATIVE); TRICHOMONAS VAGINALIS DNA NEGATIVE (NEGATIVE)
== END 2021-08-03 23:59 ==
LOC: LAB 08:00
PROVIDERS: ATTEND Obstetrics & Gynecology
DX: N89.8 Other specified noninflammatory disorders of vagina (principal)
CPT/HCPCS: 87661; 87801

== ENCOUNTER 2021-08-03 15:58 | Outpatient (CLI) | payer OTHER ==
[2021-08-03 17:54] LABS: HCT - HEMATOCRIT 31.5 % (37.0-47.0); HGB - HEMOGLOBIN 10.1 g/dL (12.0-16.0); MEAN CORPUSCULAR HEMOGLOBIN 24.8 pg (27.0-31.0); MEAN CORPUSCULAR HGB CONC 32.1 g/dL (32.0-36.0); MEAN CORPUSCULAR VOLUME 77.2 fL (81.0-99.0); MEAN PLATELET VOLUME 12.3 fL (7.9-10.8); RED BLOOD COUNT 4.08 10^6/uL (4.20-5.40); RED CELL DISTRIBUTION WIDTH 15.4 % (12.0-15.0); WHITE BLOOD COUNT 7.2 x10^3/uL (4.8-10.8)
[2021-08-03 20:36] LABS: ALBUMIN 2.9 g/dL (3.2-5.5); ALBUMIN/GLOBULIN RATIO 0.7 (1.0-2.2); BILIRUBIN,TOTAL 0.9 mg/dL (0.2-1.0); CREATININE 0.4 mg/dL (0.4-1.0); POTASSIUM 3.8 mmol/L (3.5-5.0); TOTAL PROTEIN 6.8 g/dL (6.7-8.2)
== END 2021-08-03 15:59 | disposition home or self-care (01) ==
LOC: LAB 15:58
PROVIDERS: ATTEND Obstetrics & Gynecology
DX: O99.019 Anemia complicating pregnancy, unspecified trimester (principal); D64.9 Anemia, unspecified; O99.719 Diseases of the skin and subcutaneous tissue complicating pregnancy, unspecified trimester; L29.9 Pruritus, unspecified; O99.891 Other specified diseases and conditions complicating pregnancy; R94.5 Abnormal results of liver function studies
CPT/HCPCS: 36415; 80053; 81599; 82542; 82728; 83540; 84466; 85027

== ENCOUNTER 2021-08-04 21:03 | Outpatient (CLI) | payer OTHER ==
[2021-08-04 21:13] VITALS: BP 115/75
[2021-08-04 21:37] LABS: BASOPHILS % (AUTO) 0.2 %; EOSINOPHILS # (AUTO) 0.1 10^3/uL (0.0-0.7); EOSINOPHILS % (AUTO) 1.5 %; HCT - HEMATOCRIT 30.3 % (37.0-47.0); HGB - HEMOGLOBIN 9.6 g/dL (12.0-16.0); LYMPHOCYTES # (AUTO) 1.4 10^3/uL (1.5-3.5); LYMPHOCYTES % (AUTO) 23.7 %; MEAN CORPUSCULAR HEMOGLOBIN 24.5 pg (27.0-31.0); MEAN CORPUSCULAR HGB CONC 31.7 g/dL (32.0-36.0); MEAN CORPUSCULAR VOLUME 77.3 fL (81.0-99.0); MEAN PLATELET VOLUME 11.4 fL (7.9-10.8); MONOCYTES # (AUTO) 0.4 10^3/uL (0.0-1.0); MONOCYTES % (AUTO) 7.3 %; NEUTROPHILS # (AUTO) 3.9 10^3/uL (1.5-6.6); NEUTROPHILS % (AUTO) 65.8 %; PLT - PLATELET COUNT 221 10^3/uL (130-450); RED BLOOD COUNT 3.92 10^6/uL (4.20-5.40); RED CELL DISTRIBUTION WIDTH 15.5 % (12.0-15.0); WHITE BLOOD COUNT 5.9 x10^3/uL (4.8-10.8)
[2021-08-04 21:47] LABS: ALBUMIN 2.8 g/dL (3.2-5.5); ALBUMIN/GLOBULIN RATIO 0.7 (1.0-2.2); CALCIUM 8.7 mg/dL (8.5-10.3); CREATININE 0.5 mg/dL (0.4-1.0); POTASSIUM 3.4 mmol/L (3.5-5.0); TOTAL PROTEIN 6.6 g/dL (6.7-8.2)
[2021-08-04] MEDS ORDERED: FAMOTIDINE 20 MG TABLET PO ONE (22:22)
--- NOTE | 2021-08-04 22:57 | Ultrasound Report ---
PROCEDURE: Abdomen Limited INDICATIONS: severe right upper quadrant pain in TECHNIQUE: Real-time focused scanning was performed of the right upper quadrant, with image documentation. COMPARISON: 02/07/2021. FINDINGS: The liver demonstrates increased echogenicity with coarse sonographic echotexture consistent with fat ty infiltration. No discrete hepatic mass identified sonographically. The gallbladder is surgically absent. No intra or extra hepatic biliary ductal dilatation. The visualized common bile duct measures up to a pproximately 0.5 cm. The pancreas was not visualized sonographically. Right kidney measures 11.6 cm. No hydronephrosis. Intrahepatic inferior vena cava appears patent. IMPRESSION: 1. Increased hepatic echogenicity compatible with steatosis. 2. Status post cholecystectomy. 3. No biliary ductal dilatation. Reviewed by: Tom Vergara MD on 08/04/2021 10:56 PM PST Approved by: Tom Vergara MD on 08/04/2021 10:56 PM PST Station ID: [id number]
--- NOTE | 2021-08-05 00:21 | PROVIDER PROGRESS NOTE ---
- HPI Chief Complaint: GI symptoms Current : Vital Signs Temperature 98.1 F 08/04/21 21:12 Heart Rate 97 08/04/21 21:12 Respiratory Rate 16 08/04/21 21:12 Blood Pressure 115/75 08/04/21 21:12 O2 Saturation 98 08/04/21 21:12 Temperature 98.1 F 08/04/21 21:13 Heart Rate 97 08/04/21 21:12 Respiratory Rate 16 08/04/21 21:12 Blood Pressure 115/75 08/04/21 21:12 O2 Saturation 98 08/04/21 21:12 - Procedures OB Procedure Performed: NST NST Procedure: EFM 125 mod darshan 15x15 accels no decels TOCO: one in 20 min Service Date of procedure: 08/04/21 Procedure Details: Start 21:34 Stop 22:07 Findings: Cat I tracing - Plan Plan: ID: Patient is a 31 yo at 35+5 wga here with RUQ pain. HPI: Patient was last seen in clinic on 08/03/2021 and complained of generalized pruritus. She has bile acids pending and had a CMP drawn yesterday. Of note patient had marked transaminitis in early . It appears to have resolved at present. Today she noted severe right upper quadrant pain that had worsened over the course of the day. She was unable to sit upright while driving into the hospital today secondary to the discomfort. No nausea or vomiting. She has had her gallbladder removed in July 2020. Endorses movement. Denies loss of fluid, contractions, vaginal bleeding.No headaches or vision change. PNC: LMP: "not available" ARNOL by LMP: Initial U/S: at 6.1wks with unknown LMP for arnol 09/03/2021 FINAL ARNOL: 09/03/2021 Itching in and prior elevated LFTs -BA oending Anemia in -On iron supplement - decreased in H&H with low iron levels on supplement. Ordering IV iron O pos/Rubella imm VZV:imm Genetic testing: educated and declines FAS: EFW 91%ile, 3VC, posterior, incomplete view of heart F/U US 04/23: normal views of heart BOY- named Oziel Glucola: 162--> 3H GTT passed Influenza: wants to delay until later date, recounseled on 07/13/21 ans want to wait TDAP at 06/24/2021 GBS @ 36 wks HSV: denies self and partner Breast pump Rx 05/27/2021 MOD: . Scooby. Daughters Isaias 1yo, and Courtney 9yo. pp contraception: Mirena vs sterilization. Signed [facility] consents on 06/24/21. Copy provided to patient pap: 07/2020- wnl per pt. No hx of abnormals. ANDI submitted. Covid vax- Moderna x2, completed PMH: Transaminitis/fatty liver disease EGD - GERD Depression Hypothyroidism PSH: Cholecystectomy SOC HX: Lives in [place] with and 2 daughters Employed at [employer] No BONNIE ROS: As per HPI, otherwise remaining systems are negative PE: VS: 98.1 97 115/75 16 98% GEN: NAD HEAD: NCAT EYES: No scleral icterus or conjunctival injection CV: RR RESP: normal effort ABD: gravid, Soft/ND, mild TTP in RUQ PSYCH: appropriate affect NEURO: alert and oriented, normal gait and coordination EXT: WWP EFM 125 mod darshan 15x15 accels no decels TOCO: one in 20 min CMP: normal LFTs and bilirubin CBC: HCT 30.1 US: Fatty infiltration of liver, no masses or hematoma. Gallbladder surgically absent A/P: Patient is a 31 yo at 35+5 wga here with RUQ pain. -BP wnl, no concern for pre-eclampsia -LFTs wnl -US reassuring for lack of acute process -Provided famotidine and rx for on-going prescription as well as prescription for ursodiol given pruritus with pending bile acids -Reviewed warning signs FWB: Cat I tracing FU in clinic
== END 2021-08-04 23:00 | disposition home or self-care (01) ==
LOC: WFO 21:03 → FBP 21:06 → WFO 23:00
PROVIDERS: ATTEND Obstetrics & Gynecology
DX: O26.893 Other specified pregnancy related conditions, third trimester (principal); R10.11 Right upper quadrant pain; O99.613 Diseases of the digestive system complicating pregnancy, third trimester; K21.9 Gastro-esophageal reflux disease without esophagitis; L29.9 Pruritus, unspecified; O99.013 Anemia complicating pregnancy, third trimester; Z90.49 Acquired absence of other specified parts of digestive tract; Z3A.35 35 weeks gestation of pregnancy
CPT/HCPCS: 36415; 59025; 76705; 80053; 85025; 99215; A9270

== ENCOUNTER 2021-08-10 07:35 | Outpatient (CLI) | payer OTHER ==
[2021-08-10] MEDS ORDERED: FERRIC GLUCONATE 125 MG in SODIUM CHLORIDE 0.9% 100ML 100 ML IV ONE (08:30)
[2021-08-10] MEDS ORDERED: SODIUM CHLORIDE 0.9% 100ML 100 ML IV ONE (08:37)
--- NOTE | 2021-08-10 09:21 | PROCEDURE REPORT ---
- HPI Current EDU 09/03/21 Gestation 36 Weeks and 4 Days 3 Para 2 Vital Signs Temperature 98.5 F 08/10/21 07:51 Heart Rate 67 08/10/21 07:51 Respiratory Rate 16 08/10/21 07:51 Blood Pressure 111/66 08/10/21 07:51 Temperature 98.5 F 08/10/21 07:55 Heart Rate 67 08/10/21 07:55 Respiratory Rate 16 08/10/21 07:55 Blood Pressure 111/66 08/10/21 07:55 O2 Saturation 100 08/10/21 07:55 - NST Procedure NST Procedure Start Date 08/10/21 Start Time 08:00 Stop Time 08:40 Vibroacoustic Stimulation Used No Patient States Movement Yes - Results and Plan Plan: Patient is a 31-year-old -0-0-2 at 36 weeks 4 days gestation here for scheduled NST and iron infusion. NST Performed 08/10/2021 NST Read 08/10/2021 FHT: 120 beats per baseline, moderate variability, accelerations present, no decelerations. [place]: Rare Diagnosis 36 weeks gestation Anticoagulation use Iron deficiency anemia Reactive NST Continue with twice weekly NST.
[2021-08-10 12:02] VITALS: BP 121/69
--- NOTE | 2021-08-10 12:16 | PROCEDURE REPORT ---
- HPI Current EDU 09/03/21 Gestation 36 Weeks and 4 Days 3 Para 2 Vital Signs Temperature 98.5 F 08/10/21 07:51 Heart Rate 67 08/10/21 07:51 Respiratory Rate 16 08/10/21 07:51 Blood Pressure 111/66 08/10/21 07:51 Temperature 98.4 F 08/10/21 09:30 Heart Rate 67 08/10/21 09:30 Respiratory Rate 18 08/10/21 09:30 Blood Pressure 121/69 08/10/21 09:30 O2 Saturation 100 08/10/21 07:55 - NST Procedure NST Procedure Start Date 08/10/21 Start Time 08:00 Stop Time 08:40 Vibroacoustic Stimulation Used No Patient States Movement Yes - Results and Plan Plan: Patient is a 31-year-old -0-0-2 at 36 weeks 4 days gestation here for scheduled NST and iron infusion. NST Performed 08/10/2021 NST Read 08/10/2021 FHT: 120 beats per baseline, moderate variability, accelerations present, no decelerations. [place]: Rare Diagnosis 36 weeks gestation Intrahepatic cholestasis of . Iron deficiency anemia Reactive NST Continue with twice weekly NST.
== END 2021-08-10 10:30 | disposition home or self-care (01) ==
LOC: WFO 07:35 → FBP 07:40 → WFO 10:30
PROVIDERS: ATTEND Obstetrics & Gynecology
DX: O26.613 Liver and biliary tract disorders in pregnancy, third trimester (principal); K83.1 Obstruction of bile duct; O99.013 Anemia complicating pregnancy, third trimester; D50.9 Iron deficiency anemia, unspecified; Z3A.36 36 weeks gestation of pregnancy
CPT/HCPCS: 59025; 96365; J2916; 99213

== ENCOUNTER 2021-08-13 08:06 | Outpatient (CLI) | payer OTHER ==
[2021-08-13 08:36] VITALS: BP 106/55
--- NOTE | 2021-08-13 09:20 | PROCEDURE REPORT ---
- HPI Diagnosis/Indication for NST: Other (Intrahepatic cholestasis of ) Vital Signs Temperature 98.3 F 08/13/21 08:23 Heart Rate 74 08/13/21 08:23 Respiratory Rate 17 08/13/21 08:23 Blood Pressure 106/55 L 08/13/21 08:23 Temperature 98.3 F 08/13/21 08:30 Heart Rate 74 08/13/21 08:30 Respiratory Rate 18 08/13/21 08:30 Blood Pressure 106/55 L 08/13/21 08:30 O2 Saturation 98 08/13/21 08:30 - NST Procedure NST Procedure Start Time 08:00 Stop Time 08:40 - Results and Plan Plan: Patient is a 31-year-old -0-0-2 at 37 weeks 0 days gestation here for scheduled NST. NST Performed 08/03/2021 NST Read 08/03/2021 FHT: 130 beats per baseline, moderate variability, accelerations present, no decelerations. [place]: Irregular. Denies significant feeling. Declines cervical exam. Diagnosis 37 weeks gestation Intraparotid cholestasis of Reactive NST Continue with twice weekly NST. Patient is scheduled for induction of labor on 08/17/2020. Offered early induction of labor,however will wait until scheduled date.
== END 2021-08-13 09:30 | disposition home or self-care (01) ==
LOC: WFO 08:06 → FBP 08:13 → WFO 09:30
PROVIDERS: ATTEND Obstetrics & Gynecology
DX: O26.613 Liver and biliary tract disorders in pregnancy, third trimester (principal); K83.1 Obstruction of bile duct; Z3A.37 37 weeks gestation of pregnancy
CPT/HCPCS: 59025

== ENCOUNTER 2021-08-13 18:45 | Outpatient (CLI) | payer OTHER ==
--- NOTE | 2021-08-13 20:10 | Ultrasound Report ---
PROCEDURE: OB Limited INDICATIONS: AARON OUTSIDE/PRIOR DATING DATA: Last menstrual period (LMP): Unknown. LMP-based estimated date of delivery (ARNOL): Unknown. First dating scan (date and location): 01/09/2021. Estimated date of delivery (ARNOL) from first dating scan: 09/03/2021. The below data below was generated using the study generated ARNOL of 09/03/2021 TECHNIQUE: Real-time scanning was performed of the fetus, with image documentation. COMPARISON: 04/23/2021, 04/13/2021, 01/09/2021. FINDINGS: A single living intrauterine gestation is present. Presentation: Vertex Placenta: Placental position is posterior, without previa. Largest pocket measures 3.8 cm. Amniotic fluid index: 10.5 cm, normal for gestational age. heart rate: 147 beats per minutes. Maternal cervical canal : not evaluated Estimated gestational age from initial scan: 37 weeks, 0 day.. chest, stomach, bilateral kidneys and urinary bladder are visualized and are within normal limi ts. IMPRESSION: Single live intrauterine with fetus in vertex presentation. heart rate i s 147 bpm. AARON gross 10.5 cm and is within normal limits. Reviewed by: Po Conklin MD on 08/13/2021 8:08 PM PST Approved by: Po Conklin MD on 08/13/2021 8:08 PM PST Station ID: [id number]
== END 2021-08-13 18:46 | disposition home or self-care (01) ==
LOC: DI 18:45
PROVIDERS: ATTEND Obstetrics & Gynecology
DX: O26.613 Liver and biliary tract disorders in pregnancy, third trimester (principal); Z3A.37 37 weeks gestation of pregnancy

== ENCOUNTER 2021-08-17 07:31 | Inpatient (IN) | payer OTHER ==
[2021-08-17] MEDS ORDERED: miSOPROStoL 200 MCG TABLET BC PRN (08:36)
[2021-08-17] MEDS ORDERED: fentaNYL 100 MCG/2 ML VIAL IVP PRN (08:36)
[2021-08-17] MEDS ORDERED: TRANEXAMIC ACID IN NACL 1,000 MG/100 ML BAG IV PRN (08:36)
[2021-08-17] MEDS ORDERED: OXYTOCIN/SODIUM CHLORIDE 500 ML IV PRN (08:36)
[2021-08-17] MEDS ORDERED: LIDOCAINE-MPF 1% 30 ML VIAL ID PRN (08:36)
[2021-08-17] MEDS ORDERED: CARBOPROST TROMETHAMINE 250 MCG/ML AMP IM PRN (08:36)
[2021-08-17] MEDS ORDERED: miSOPROStoL 200 MCG TABLET PR PRN (08:36)
[2021-08-17] MEDS ORDERED: TERBUTALINE 1 MG/ML VIAL SUBQ PRN (08:36)
[2021-08-17] MEDS ORDERED: METHYLERGONOVINE 0.2 MG/ML VIAL IM PRN (08:36)
[2021-08-17] MEDS ORDERED: SODIUM CHLORIDE FLUSH 0.9% 10 ML SYRINGE IVP PRN (08:36)
[2021-08-17] MEDS ORDERED: OXYTOCIN 10 UNIT/ML VIAL IM PRN (08:36)
[2021-08-17] MEDS ORDERED: ONDANSETRON 4 MG/2 ML VIAL IVP PRN (08:56)
[2021-08-17] MEDS ORDERED: CLINDAMYCIN 900 MG/50 ML 50 ML IV SCH (09:00)
[2021-08-17] MEDS ORDERED: OXYTOCIN/SODIUM CHLORIDE 500 ML IV SCH (09:00)
[2021-08-17] MEDS ORDERED: SODIUM CHLORIDE FLUSH 0.9% 10 ML SYRINGE IVP SCH (09:00)
--- NOTE | 2021-08-17 09:38 | HISTORY & PHYSICAL EXAMINATION ---
Admit History - Visit Reason Visit Reason: Other (Induction of labor for cholestasis of ) - : 3 Parity: 2 Care: positive: [facility] Risk/History: positive: Labor induction Complications This : positive: Other (Cholestasis of ) Smoking Status: Never smoker - Mother's Labs Mother's Blood Type: positive: O Mother's RH: positive: Positive GBS: positive: Other (unknown) Rubella Status: positive: Immune - Other Maternal History Other Maternal History: OB: x2 2011, 2019, [id number] Med: GERD, depression, hypothyroidism Surg: cholecystectomy Fam: cardiac, HTN, DM Social: denies BONNIE, partner present with patient Meds/Allgy - Home Medications Home Medications: Ambulatory Orders Medication Instructions Recorded Confirmed Levothyroxine Sodium 50 mcg PO DAILY 12/06/20 12/06/20 [Levothyroxine] Sucralfate [Carafate] 1 gm PO ACHS #60 tablet 12/06/20 - Allergies Allergies/Adverse Reactions: Allergies Allergy/AdvReac Type Severity Reaction Status Date / Time Penicillins Allergy Unknown Verified 12/06/20 21:04 shellfish derived Allergy Unknown Verified 08/17/21 08:58 Review of Systems - All Other Systems All Other Systems: reports: Reviewed and negative Physical - Abdominal Exam Vital Signs: Temp Pulse Resp BP Pulse Ox 98.4 F 88 16 115/66 08/17/21 08:45 08/17/21 08:45 08/17/21 08:45 08/17/21 08:45 Contraction Intensity: positive: Mild Uterine Resting Tone: positive: Soft - Monitoring Heart Rate Baseline: 120s Strip Review: positive: Category I - Presentation Presentation: positive: Vertex ( head palpated vaginal exam) - Vaginal Exam Membranes: positive: Membranes intact Dilation (in cm): 3 Effacement (%): 50 Station: positive: -3 Cervical Position: positive: Midposition - Speculum Exam Speculum Exam Performed: positive: No - Other Notes Labor Progress Note/Additional Text: EFW [id number] Ultrasounds reviewed, placenta posterior Plan for Labor - Plan For Labor I expect patient to be DC'd or transferred within 96 hours.: Yes Plan for Labor: 31yo at 37.4w confirmed by 6w US admitted for IOL for cholestasis of - Admit to [facility] - CBC, CMP, T&S - Start Pitocin - GBS unknown, will start clindamycin, vancomycin - Cat 1 tracing - Reassess 4h/prn - Does not plan for epidural, but may have prn
[2021-08-17 09:48] LABS: BASOPHILS % (AUTO) 0.2 %; EOSINOPHILS # (AUTO) 0.1 10^3/uL (0.0-0.7); EOSINOPHILS % (AUTO) 1.3 %; HCT - HEMATOCRIT 33.7 % (37.0-47.0); HGB - HEMOGLOBIN 10.6 g/dL (12.0-16.0); LYMPHOCYTES # (AUTO) 1.3 10^3/uL (1.5-3.5); LYMPHOCYTES % (AUTO) 22.7 %; MEAN CORPUSCULAR HEMOGLOBIN 24.5 pg (27.0-31.0); MEAN CORPUSCULAR HGB CONC 31.5 g/dL (32.0-36.0); MEAN PLATELET VOLUME 12.1 fL (7.9-10.8); MONOCYTES # (AUTO) 0.4 10^3/uL (0.0-1.0); MONOCYTES % (AUTO) 6.8 %; NEUTROPHILS # (AUTO) 3.8 10^3/uL (1.5-6.6); NEUTROPHILS % (AUTO) 67.7 %; PLT - PLATELET COUNT 213 10^3/uL (130-450); RED BLOOD COUNT 4.32 10^6/uL (4.20-5.40); RED CELL DISTRIBUTION WIDTH 17.8 % (12.0-15.0); WHITE BLOOD COUNT 5.6 x10^3/uL (4.8-10.8)
[2021-08-17] MEDS: LACTATED RINGERS 1,000 ML IV SCH ×2 (09:57→19:52)
[2021-08-17] MEDS ORDERED: VANCOMYCIN INJ 2 GM in SODIUM CHLORIDE 0.9% 500 ML IV ONE (10:00)
[2021-08-17 10:01] LABS: ALBUMIN/GLOBULIN RATIO 0.7 (1.0-2.2); BILIRUBIN,TOTAL 0.9 mg/dL (0.2-1.0); CALCIUM 9.2 mg/dL (8.5-10.3); CREATININE 0.5 mg/dL (0.4-1.0); POTASSIUM 3.6 mmol/L (3.5-5.0); TOTAL PROTEIN 7.1 g/dL (6.7-8.2)
[2021-08-17] MEDS: LEVOTHYROXINE 112 MCG TABLET PO SCH (10:53)
[2021-08-17] MEDS ORDERED: SUCRALFATE 1 GM PO SCH (11:00)
--- NOTE | 2021-08-17 11:15 | PHARMACY PROGRESS NOTE ---
- Best Possible Medication History Admit Date and Time: 08/17/21 0836 Processed by: Pharmacy Medication History completed: Yes Secondary Source(s): Physician records, Pharmacy records, Insurance records As the person ultimately responsible for medication therapy, providers are able to order a medication from an existing home medication list in [facility] via the "Reconcile Routine" prior to Confirmation of that medication by software support engineer. Such practice is discouraged except when the physician, in their clinical judgment, deems that a medical need exists for a medication without regard to previous use.
[2021-08-17] MEDS ORDERED: diphenhydrAMINE INJ 50 MG/ML VIAL IVP ONE (13:00)
--- NOTE | 2021-08-17 14:32 | PROVIDER PROGRESS NOTE ---
Labor Progress Note - Uterine Monitoring Uterine Monitoring Mode: positive: External toco Contraction Frequency (min/apart): 2-4n Uterine Resting Tone: positive: Soft - Monitoring Monitor Mode: positive: External ultrasound, Doppler/auscultation Heart Rate Baseline: 120s Heart Rate Variability: positive: Moderate (6-25 bmp) Accelerations: positive: Present, 15x15 Decelerations: positive: None Strip Review: positive: Category I - Vaginal Exam Dilation (in cm): 6 Effacement (%): 100 Station: -2 Cervical Position: Posterior - Labor Progress Note Labor Progress Note/Additional Text: 31yo at 37.4w admitted for IOL for cholestasis of - GBS unknown. Patient developed itching and per pt swelling of lips and flushing during vancomycin infusion. GBS neg prior pregnancies per pt. Will discontinue antibiotics. to be monitored , mother is PCN allergic. Benadryl given and patient now feeling better. - Cat 1 tracing - Plan for AROM next exam - Anticipate
--- NOTE | 2021-08-17 17:42 | PROVIDER PROGRESS NOTE ---
Labor Progress Note - Uterine Monitoring Contraction Frequency (min/apart): q2-4m Contraction Intensity: positive: Moderate to strong Uterine Resting Tone: positive: Soft - Monitoring Monitor Mode: positive: Doppler/auscultation Heart Rate Baseline: 130s Heart Rate Variability: positive: Moderate (6-25 bmp) Accelerations: positive: Present, 15x15 Decelerations: positive: None Strip Review: positive: Category I - Vaginal Exam Dilation (in cm): 7 Effacement (%): 100 Station: -2 Cervical Position: Midposition - Labor Progress Note Labor Progress Note/Additional Text: 31yo at 37.4 for IOL for cholestasis - AROM 1620, clear - Declined epidural, may have prn - Anticipate
[2021-08-17] MEDS ORDERED: ROPIVACAINE 0.2% 0 MG/0 ML BAG EP ONE (20:04)
--- NOTE | 2021-08-17 20:41 | DELIVERY NOTE ---
Delivery Note - Labor Labor: positive: Augmented by ARM, Augmented by oxytocin, Induced by oxytocin - Infant Delivery Method Infant Delivery Method: positive: Spontaneous vaginal delivery - Presentation Presentation: positive: Vertex, KEYLA - left occiput anterior - Nuchal Cord Nuchal Cord: positive: None - Anesthetic Anesthetic: positive: Lidocaine - 1% plain Volume: positive: 5cc - Amniotic Fluid Description Amniotic Fluid Description: positive: Clear - Episiotomy Type Episiotomy Type: positive: None - Laceration Laceration: positive: 2nd degree - Suture Suture Type: positive: Vicryl Suture Size: positive: 3-0 - Delivery Outcome Delivery Outcome: positive: Livebirth - [place] : positive: Placed in direct skin contact with mother [place] sex: positive: Male - Cord Cord: positive: 3 vessels - Placenta Placenta: positive: Spontaneous - Estimated Blood Loss Estimated Blood Loss (in cc): 200 - Post Delivery Events Post Delivery Events: positive: No post delivery events - Delivery Comments (Free Text/Narrative) Delivery Comments (Free Text/Narrative): Patient about to have epidural when she felt pressure. 10/100/+2 and pushing began with good efforts. Head delivered, KEYLA. Shoulders and body delivered with ease. placed on mother's abdomen. Delayed cord clamping. Placenta delivered spontaneously and intact, 3vc. Fundus firm. Vagina and perineum inspected- 2nd degree laceration repaired with 3-0 vicryl. Hemostasis. EBL 200cc. Mother, father, baby bonding at bedside doing well.
[2021-08-17] MEDS ORDERED: LACTATED RINGERS 1,000 ML IV SCH (21:00)
[2021-08-17] MEDS: DOCUSATE SODIUM 100 MG CAPSULE PO SCH (21:12)
[2021-08-17] MEDS: IBUPROFEN 800 MG TABLET PO SCH (21:13)
[2021-08-17] MEDS: ACETAMINOPHEN 500 MG TABLET PO SCH (21:13)
[2021-08-18] MEDS: IBUPROFEN 800 MG TABLET PO SCH ×4 (03:06→21:36)
[2021-08-18] MEDS: ACETAMINOPHEN 500 MG TABLET PO SCH ×3 (04:23→20:31)
[2021-08-18] MEDS ORDERED: LEVOTHYROXINE 25 MCG TABLET PO SCH (07:00)
[2021-08-18] MEDS: DOCUSATE SODIUM 100 MG CAPSULE PO SCH ×2 (08:26→20:32)
[2021-08-18] MEDS: LEVOTHYROXINE 112 MCG TABLET PO SCH (08:47)
--- NOTE | 2021-08-18 10:21 | PROVIDER PROGRESS NOTE ---
Subjective - Prog Note Date Prog Note Date: 08/18/21 - Subjective Pt reports feeling: Improved Subjective: Comfortable. Appropriate lochia. Ambulating. Voiding. Tolerating regular diet. . Mood is good. Reports itching has much improved. Objective - Vital Signs/Intake & Output Reviewed Vital Signs: Yes Vital Signs: Vital Signs x48h Temp Pulse Resp BP Pulse Ox 08/18/21 08:00 98.1 F 71 16 125/64 100 08/18/21 04:24 98.2 F 68 18 110/60 Intake & Output: Intake & Output 08/15/21 08/16/21 08/17/21 08/18/21 23:59 23:59 23:59 23:59 Intake Total 2730.984 1173 Output Total 950 Balance 2730.984 223 - Objective General Appearance: positive: No acute distress Respiratory: positive: No respiratory distress Cardiovascular: positive: Regular rate & rhythm Abdomen: positive: Other (Fundus firm) Extremities: positive: Other (Minimal edema) Neurologic/Psychiatric: positive: Oriented x3 - Lab Results Fish Bones: 08/17/21 09:38 08/17/21 09:38 Other Labs: Lab Results x24hrs 08/17/21 08/17/21 Range/Units 09:38 08:45 Group B Strep (PCR) POSITIVE A (NEGATIVE) Blood Type O POSITIVE Antibody Screen NEGATIVE ABX Reporting Has patient been on IV antibiotics over the past 48 hours?: Yes Assessment/Plan - Problem List (1) care following vaginal delivery Impression: 31yo s/p 08/17 at 37.4w following IOL for cholestasis of , PPD#1 recovering appropriately - GBS resulted positive, to be monitored until tomorrow - Repeat TSH - Continue routine care - Anticipate discharge home tomorrow (3) Hypothyroidism in Qualifiers: Trimester: third trimester
[2021-08-19] MEDS: IBUPROFEN 800 MG TABLET PO SCH ×2 (04:04→10:05)
[2021-08-19] MEDS: ACETAMINOPHEN 500 MG TABLET PO SCH (04:05)
[2021-08-19] MEDS: LEVOTHYROXINE 112 MCG TABLET PO SCH (07:42)
[2021-08-19 07:59] VITALS: BP 115/70
--- NOTE | 2021-08-19 08:05 | Discharge Plan ---
Discharge Plan Problem Reviewed?: Yes Disposition: Home, Self Care Condition: Good Diet: Regular Activity Restrictions: Pelvic rest 6 weeks Shower Restrictions: No Driving Restrictions: No Instruction Topics: Vaginal After, Depression , Vaginal Incis Care, Childbirth Breast Care No Smoking: If you smoke, Please STOP! Call for help. Follow-up with: Ej Gillis DO [Primary Care Provider] - Juanita Rea MD [Provider Admit Priv/Credential] - 2 Weeks (Follow up 2-6w)
--- NOTE | 2021-08-19 08:09 | DISCHARGE SUMMARY ---
"Discharge Summary Admit Date: 08/17/21 Discharge Date: 08/19/21 Discharging Provider: Mary Jara DO Code Status: Attempt Resuscitation Condition at Discharge: Good Discharge Disposition: 01 Home, Self Care Discharge [facility] - DIAGNOSES Admission Diagnoses: Cholestasis of GBS positive Hypothryoidism History depression Discharge Diagnoses with Status of Each Condition: Cholestasis of Hypothyroidism GBS positive History of depression - HPI History of Present Illness: 31yo admitted 08/17 for induction of labor for cholestasis of at 37.4w. also complicated by hypothyroidism, history of depression. - CONSULTS | PROCEDURES Procedures: - HOSPITAL COURSE Hospital Course: 31yo admitted 08/17/21 at 37.4w for IOL for cholestasis of . Also complicated by hypothryoidism and history of depression. GBS was unknown and collected during admission. She was treated with clindamycin and vancomycin but developed reaction to vancomycin and antibiotics discontinued. Penicillin allergic. Pitocin started. AROM for clear fluid performed. She progressed to 10cm and delivered live male without complications. Second degree perineal laceration repaired. She is recovering appropriately and meets criteria for discharge. care and precautions reviewed. She will follow up 2-6w at [facility]. - ALLERGIES Allergies/Adverse Reactions: Allergies Allergy/AdvReac Type Severity Reaction Status Date / Time Penicillins Allergy Unknown Verified 08/17/21 20:01 shellfish derived Allergy Unknown Verified 08/17/21 08:58 vancomycin Allergy Itching Verified 08/17/21 20:02 - MEDICATIONS Home Medications: Ambulatory Orders Medication Instructions Recorded Confirmed Famotidine 40 mg PO DAILY 08/17/21 08/17/21 Levothyroxine [Synthroid] 112 mcg PO QDAC 08/17/21 08/17/21 - PHYSICAL EXAM AT DISCHARGE General Appearance: positive: No acute distress Respiratory: positive: No respiratory distress Cardiovascular: positive: Regular rate & rhythm Abdomen: positive: Non-tender Skin: positive: Color nml Extremities: positive: Non-tender Neurologic/Psychiatric: positive: Oriented x3 - LABS Result Diagrams: 08/17/21 09:38 08/17/21 09:38 - FOLLOW UP Follow Up: 2-6w for appointment at [facility] - TIME SPENT Time Spent in Discharge (Minutes): 25"
[2021-08-19] MEDS: DOCUSATE SODIUM 100 MG CAPSULE PO SCH (10:06)
--- NOTE | 2021-08-19 11:37 | Labor Flowsheet ---
Labor Flowsheet Datetime Report Generated by CPN: 08/19/2021 11:37 Datetime: 08/19/2021 07:45 VITAL SIGNS NBP Sys/Nina/Mean (mmHg): 115 : 70 : 80 Pulse: 61 SpO2 (%): 99 Datetime: 08/17/2021 20:15 Stage of : Recovery Respirations: 18 Temperature (C): 36.8 Vaginal Exam Comments: placenta del Datetime: 08/17/2021 20:13 LaborFlag: Labor Datetime: 08/17/2021 20:09 STAGE 2 Stage 2 Comments: del Datetime: 08/17/2021 20:04 FHR Baseline Rate : 125 Datetime: 08/17/2021 20:02 VAGINAL EXAM Dilatation (cm): 10.0 Effacement (%): 100 Station: 1 Exam by: Dr. Cayabyab Datetime: 08/17/2021 20:01 Pain Assessment Comments: pt stated baby coming repositioned for VE Dr. Cayabyab on unit on her way to room for VE Datetime: 08/17/2021 19:54 Contraction Comments: pt standing leaning forward Datetime: 08/17/2021 19:45 Pattern: Normal: <= 5 Contractions in 10 Minutes FHR Baseline Changes: No Baseline Change Datetime: 08/17/2021 19:44 COMMUNICATION Communication: Provider at Bedside Datetime: 08/17/2021 19:40 Patient Position/Activity: Standing Datetime: 08/17/2021 19:36 Medication Comments: 500 cc fluid bolus started Datetime: 08/17/2021 19:34 Vaginal Bleeding: None Cervix, Consistency: Soft Cervix, Position: Midposition Provider Notified (Name): Stacey Communication Comments: SENIOR DATA [employer]ING A[employer]LYST called per patient request for epidural. Provider will be in soon. And requests 500ml bolus. RN already running bolus. Datetime: 08/17/2021 19:16 Pain Goal: 10 Datetime: 08/17/2021 19:05 Nurse Receiving Report: Екатерина Bolden, RN Datetime: 08/17/2021 19:00 Monitor Interventions for FHR: Ultrasound Adjusted Provider Reviewed Strip: Yes Strip Reviewed by: Dr. Jara Notification Reason: Status Update; Status; Labor Status; Uterine Activity; Pain Datetime: 08/17/2021 18:45 UTERINE ACTIVITY Monitor Mode: External Monitor Interventions for UA: [place] Adjusted Frequency (min): 1.5-2 Quality: Strong Duration (sec): 50-80 Resting Tone (Palpate): Relaxed ASSESSMENT A Monitor Mode: Telemetry Variability: Moderate 6-25 bpm Accelerations: 10X10 Decelerations: None Category: Category I Datetime: 08/17/2021 18:15 Temperature Route: Oral Datetime: 08/17/2021 18:06 MEDICATIONS Pitocin (milliunits): Increased to @ 12 Datetime: 08/17/2021 18:02 PAIN Pain Scale: 8 Datetime: 08/17/2021 17:55 I/O Interventions: Up to BR Datetime: 08/17/2021 17:45 Comments: Interrupted tracing, maternal repositioning Datetime: 08/17/2021 16:58 Patient Care Comments: throne Datetime: 08/17/2021 16:21 Membrane Status: Ruptured Membranes Rupture Method: Artificial Amniotic Fluid Color: Clear Amniotic Fluid Amount: Moderate Amniotic Fluid Odor: Normal Datetime: 08/17/2021 16:00 Oxygen Method: Room Air Datetime: 08/17/2021 13:42 Pain Presence: Intermittent Pain Type: Contraction Pain Location: Abdomen Pain Relief Measures: Comfort Measures Pain Coping: Talking Through Contractions Datetime: 08/17/2021 12:56 Comfort Measures: Hot Shower/Tub/Spa Datetime: 08/17/2021 11:06 Antibiotics: Other Antibiotic @ Vancomycin 2G Datetime: 08/17/2021 10:30 Pitocin Checklist: At Least 1 Acceleration of 15 bpm x 15 Seconds in 30 Minutes or Adequate Variabi lity; No More than 1 Late Deceleration Occurred in Past 30 Minutes; No More than 2 Variable Decelerat ions > 60 Seconds in Duration and decreasing >60 bpm in 30 minutes; No More than 5 Uterine Contractio ns in 10 Minutes for any 20 Minute Interval; Uterus Palpates Soft between Contractions Datetime: 08/17/2021 09:57 PATIENT CARE IV/Blood Work: IV Infusing per Order; IV Bag Number @ 1
== END 2021-08-19 11:00 | disposition home or self-care (01) | DRG 805 ==
LOC: WFO 07:31 → FBP 07:36 → WFO 08:35 → FBP 08:36
PROVIDERS: ADMIT Obstetrics & Gynecology; ATTEND Obstetrics & Gynecology
PROC: 10907ZC Drainage of Amniotic Fluid, Therapeutic from Products of Conception, Via Natural or Artificial Opening (ICD-10-PCS; principal; 2021-08-17)
PROC: 10E0XZZ Delivery of Products of Conception, External Approach (ICD-10-PCS; 2021-08-17)
PROC: 0KQM0ZZ Repair Perineum Muscle, Open Approach (ICD-10-PCS; 2021-08-17)
PROC: 3E0DXGC Introduction of Other Therapeutic Substance into Mouth and Pharynx, External Approach (ICD-10-PCS; 2021-08-17)
DX: O26.62 Liver and biliary tract disorders in childbirth (principal); K83.1 Obstruction of bile duct; Z37.0 Single live birth; Z3A.37 37 weeks gestation of pregnancy; O99.824 Streptococcus B carrier state complicating childbirth; O99.284 Endocrine, nutritional and metabolic diseases complicating childbirth; E03.9 Hypothyroidism, unspecified; Z87.59 Personal history of other complications of pregnancy, childbirth and the puerperium; O9A.22 Injury, poisoning and certain other consequences of external causes complicating childbirth; T36.8X5A Adverse effect of other systemic antibiotics, initial encounter; Y92.239 Unspecified place in hospital as the place of occurrence of the external cause; Z88.0 Allergy status to penicillin; O70.1 Second degree perineal laceration during delivery
CPT/HCPCS: 80053; 85025; 86850; 86900; 86901; 87081; 87797; A9270; J1200; J3370; J7120

== ENCOUNTER 2021-08-30 12:32 | Outpatient (CLI) | payer OTHER | END 2021-08-30 13:45 | disposition home or self-care (01) | LOC: WFO 12:32 → FBP 12:34 → WFO 13:45 | PROVIDERS: ATTEND Pediatrics | DX: Z39.1 Encounter for care and examination of lactating mother (principal) ==

== ENCOUNTER 2021-09-26 11:01 | Emergency (ER) | payer OTHER ==
--- NOTE | 2021-09-26 12:13 | ED Physician Documentation ---
PD HPI UPPER EXT INJURY - Stated complaint Stated Complaint: L WRIST PX - Chief complaint Chief Complaint: Ext Problem - History obtained from History obtained from: Patient - Additonal information Additional information: 31yo right-handed woman who for the last 6 months has been having pain on the radial side of the left wrist. She has tried numerous things including cortisone shots, Biofreeze without relief. 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 She was supposed to be see occupational therapy for this but was induced around the same time so could not follow-up. There was a fall with wrist injury about a month ago which made the pain worse but the pain preceded this by several months. Review of Systems Constitutional: reports: Reviewed and negative Eyes: reports: Reviewed and negative Nose: reports: Reviewed and negative Throat: reports: Reviewed and negative Cardiac: reports: Reviewed and negative PD PAST MEDICAL HISTORY - Past Medical History Past Medical History: No Endocrine/Autoimmune: HyPOthyroidism GI: GERD - Past Surgical History Past Surgical History: Yes General: Cholecystectomy, Appendectomy - Present Medications Home Medications: Ambulatory Orders Medication Instructions Recorded Confirmed Levothyroxine [Synthroid] 112 mcg PO QDAC 08/17/21 09/26/21 - Allergies Allergies/Adverse Reactions: Allergies Allergy/AdvReac Type Severity Reaction Status Date / Time Penicillins Allergy Unknown Verified 09/26/21 11:11 shellfish derived Allergy Unknown Verified 09/26/21 11:11 vancomycin Allergy Itching Verified 09/26/21 11:11 - Social History Does the pt smoke?: No Smoking Status: Never smoker Does the pt drink ETOH?: No Does the pt have substance abuse?: No - Immunizations Immunizations are current?: Yes - POLST Patient has POLST: No PD ED PE NORMAL - Vitals Vital signs reviewed: Yes - General General: Alert and oriented X 3, No acute distress - Extremities Extremities: Other (She is tender along the radial side of the left wrist with some swelling. No redness or warmth. She has pain especially with flexion of the left wrist and positive de Quervain's testing. Normal sensation throughout the hand.) - Neuro Neuro: Alert and oriented X 3, Normal speech - Psych Psych: Normal mood, Normal affect Results - Vitals Vitals: Vital Signs - 24 hr 09/26/21 09/26/21 11:09 12:57 Temperature 35.7 C L Heart Rate 68 69 Respiratory 16 16 Rate Blood Pressure 129/70 124/79 O2 Saturation 99 98 Oxygen O2 Source Room air - Rads (name of study) 4 view x-ray of the left wrist is unremarkable Radiology: EMP read contemporaneously PD MEDICAL DECISION MAKING - ED course ED course: 31-year-old with longstanding left wrist pain, initially she states 6 months, but subsequently we were talking about a repeat steroid injection and states that was done last September so her pain was even longer than that. 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 I did offer repeat steroid injection which she declined at this time. Diagnosis is consistent with de Quervain's tenosynovitis. Departure - Departure Disposition: 01 Home, Self Care Clinical Impression: De Quervain's tenosynovitis, left Condition: Good Record reviewed to determine appropriate education?: Yes Instructions: ED De Quervain Tenosynovitis Comments: As discussed, ideally you will wear the Velcro splint when active for 4 to 6 weeks or as long as it takes to heal. Follow-up with your primary care physician and consider reconsulting with occupational therapy. Return for new or worsening symptoms. Discharge Date/Time: 09/26/21 13:03
[2021-09-26 12:58] VITALS: BP 124/79
--- NOTE | 2021-09-26 13:14 | XRAY Report ---
PROCEDURE: Wrist 4 View LT INDICATIONS: wrist pain TECHNIQUE: 4 views of the wrist were acquired. COMPARISON: None FINDINGS: Bones: No fractures or dislocations. No suspicious bony lesions. Scaphoid view: No visualized fracture. Soft tissues: No suspicious soft tissue calcifications. IMPRESSION: No visualized acute fracture or dislocation. However, occult injury cannot be excluded. Recommend kathya rt interval imaging follow-up in 7-10 days as clinically indicated for additional evaluation. Reviewed by: Darlin Higginbotham MD on 09/26/2021 1:13 PM PST Approved by: Darlin Higginbotham MD on 09/26/2021 1:13 PM PST Station ID: [id number]
== END 2021-09-26 13:03 | disposition home or self-care (01) ==
LOC: ED 11:01
DX: M65.4 Radial styloid tenosynovitis [de Quervain] (principal)
CPT/HCPCS: 99282; 99283